=== PATIENT | female | born 1935 | race Caucasian/White ===

== ENCOUNTER 2018-09-16 09:43 | Emergency (ER) | payer MEDICARE ==
[~2018-09-16] VITALS: Ht 152.4 cm; Wt 40.4 kg
[~2018-09-16 09:43] MED LIST: ASCO10002 PO; ASPI-630 PO; CALC1TAB75 PO; CHOL200044 PO; CYCL10TA2 PO; DILT120C80 PO; DILT60TA3 PO; FLUT1DIS3 IH; GLUC1CAP41 PO; OMEG-123 PO; PROAIR HFA8.5 GM INH; SULF1TAB24 PO; TIOT18CA IH; TRAM-48 PO; VALS160T3 PO
--- NOTE | 2018-09-16 11:10 | PHYS DOC ---
Past Medical History Past Medical History: Constipation, COPD, Heart Disease, Hypertension Additional Past Medical Histor: back pain Past Surgical History: Cholecystectomy, Hysterectomy, Pacemaker Alcohol Use: None Drug Use: None Adult General Chief Complaint Chief Complaint: CONSTIPATION HPI HPI Patient is a 82 year old female who presents with hasn't had a bowel movement in 8 days. Patient was seen about 6 days ago in urgent care for some chronic back pain and they gave her hydrocodone. She been taking 2 every 6 hours. Patient is now having intense rectal pain. Review of Systems Review of Systems Constitutional: Denies fever or chills [] Eyes: Denies change in visual acuity, redness, or eye pain [] HENT: Denies nasal congestion or sore throat [] Respiratory: Denies cough or shortness of breath [] Cardiovascular: No additional information not addressed in HPI [] GI: Denies abdominal pain, nausea, vomiting, bloody stools or diarrhea. Rectal pain, constipation.[] : Denies dysuria or hematuria [] Musculoskeletal: Denies back pain or joint pain [] Integument: Denies rash or skin lesions [] Neurologic: Denies headache, focal weakness or sensory changes [] Endocrine: Denies polyuria or polydipsia [] All other systems were reviewed and found to be within normal limits, except as documented in this note. Current Medications Current Medications Current Medications Medications (Trade) Dose Ordered Sig/Reginald Start Time Stop Time Status Last Admin Dose Admin Fentanyl Citrate (Fentanyl 2ml Vial) 50 mcg 1X ONCE 09/16/18 13:00 09/16/18 13:01 DC Lidocaine HCl (Viscous Lidocaine) 15 ml 1X ONCE 09/16/18 13:00 09/16/18 13:01 DC Ondansetron HCl (Zofran Odt) 4 mg 1X ONCE 09/16/18 11:45 09/16/18 11:46 DC 09/16/18 11:43 4 MG Allergies Allergies Allergies Coded Allergies Type Severity Reaction Last Updated Verified prednisone Adverse Reaction Intermediate pt states she experienced hallucinations with Prednisone 08/11/16 Yes Physical Exam Physical Exam Constitutional: Well developed, well nourished, no acute distress, non-toxic appearance. [] HENT: Normocephalic, atraumatic, bilateral external ears normal, oropharynx moist, no oral exudates, nose normal. [] Eyes: PERRLA, EOMI, conjunctiva normal, no discharge. [] Neck: Normal range of motion, no tenderness, supple, no stridor. [] Cardiovascular:Heart rate regular rhythm, no murmur [] Lungs & Thorax: Bilateral breath sounds clear to auscultation [] Abdomen: Bowel sounds normal, soft, no tenderness, no masses, no pulsatile masses. Impacted stool at the rectum. [] Skin: Warm, dry, no erythema, no rash. [] Back: No tenderness, no CVA tenderness. [] Extremities: No tenderness, no cyanosis, no clubbing, ROM intact, no edema. [] Neurologic: Alert and oriented X 3, normal motor function, normal sensory function, no focal deficits noted. [] Psychologic: Affect normal, judgement normal, mood normal. [] Current Patient Data Vital Signs Vital Signs Date Time Temp Pulse Resp B/P (MAP) Pulse Ox O2 Delivery O2 Flow Rate FiO2 09/16/18 09:55 98.7 88 20 201/80 (120) Nasal Cannula 98.7 Lab Values Laboratory Tests Test 09/16/18 11:50 White Blood Count 11.7 x10^3/uL (4.0-11.0) H Red Blood Count 3.98 x10^6/uL (3.50-5.40) Hemoglobin 12.1 g/dL (12.0-15.5) Hematocrit 35.3 % (36.0-47.0) L Mean Corpuscular Volume 89 fL (79-100) Mean Corpuscular Hemoglobin 31 pg (25-35) Mean Corpuscular Hemoglobin Concent 34 g/dL (31-37) Red Cell Distribution Width 14.2 % (11.5-14.5) Platelet Count 351 x10^3/uL (140-400) Neutrophils (%) (Auto) 83 % (31-73) H Lymphocytes (%) (Auto) 11 % (24-48) L Monocytes (%) (Auto) 5 % (0-9) Eosinophils (%) (Auto) 0 % (0-3) Basophils (%) (Auto) 1 % (0-3) Neutrophils # (Auto) 9.6 x10^3uL (1.8-7.7) H Lymphocytes # (Auto) 1.3 x10^3/uL (1.0-4.8) Monocytes # (Auto) 0.6 x10^3/uL (0.0-1.1) Eosinophils # (Auto) 0.0 x10^3/uL (0.0-0.7) Basophils # (Auto) 0.1 x10^3/uL (0.0-0.2) Sodium Level 138 mmol/L (136-145) Potassium Level 3.9 mmol/L (3.5-5.1) Chloride Level 97 mmol/L (98-107) L Carbon Dioxide Level 29 mmol/L (21-32) Anion Gap 12 (6-14) Blood Urea Nitrogen 38 mg/dL (7-20) H Creatinine 1.2 mg/dL (0.6-1.0) H Estimated GFR (Cockcroft-Gault) 43.1 BUN/Creatinine Ratio 32 (6-20) H Glucose Level 119 mg/dL (70-99) H Calcium Level 10.0 mg/dL (8.5-10.1) Total Bilirubin 0.3 mg/dL (0.2-1.0) Aspartate Amino Transferase (AST) 23 U/L (15-37) Alanine Aminotransferase (ALT) 36 U/L (14-59) Alkaline Phosphatase 84 U/L (46-116) Total Protein 6.5 g/dL (6.4-8.2) Albumin 3.7 g/dL (3.4-5.0) Albumin/Globulin Ratio 1.3 (1.0-1.7) Laboratory Tests 09/16/18 11:50 Laboratory Tests 09/16/18 11:50 EKG EKG [] Radiology/Procedures Radiology/Procedures Abd CT Impressions: [facility] [address] [place] [address] IMAGING REPORT Signed PATIENT: RUTHIE CRUZ ACCOUNT: [id number] : 1935 LOCATION: ER AGE: 82 SEX: F EXAM STATUS: REG ER ORD. PHYSICIAN: JOSE CABRAL APRN REASON: CONSTIPATION/ FECAL IMPACTION PROCEDURE: CT ABDOMEN PELVIS WO CONTRAST Examination: CT of the abdomen pelvis without contrast HISTORY: History of fecal impaction, constipation TECHNIQUE: Axial CT images of the abdomen pelvis were performed without contrast. Coronal and sagittal reformats are performed Exposure: One or more of the following individualized dose reduction techniques were utilized for this examination: 1. Automated exposure control 2. Adjustment of the mA and/or kV according to patient size 3. Use of iterative reconstruction technique FINDINGS: The visualized bibasilar lungs are clear. No evidence of free air identified in the abdomen. The evaluation of the solid organs is limited due to lack of IV contrast. The evaluation of the bowel is limited lack of oral contrast. Calcified granulomas identified in the spleen, liver. There is a 1.4 cm hypodense nodule identified in the right adrenal gland measuring -10 Hounsfield units likely lipid rich adrenal adenoma. The stomach is mildly distended. Mildly atrophic changes of the pancreas. The small bowel is nondilated. Moderate amount of feces and gas noted throughout the colon. There is moderate inflammatory fat setting identified about the distal rectum. Urinary bladder is mildly distended. The appendix is not clearly identified. No evidence of intrarenal collecting system calculi or hydronephrosis. Mild compression changes of T12, L2 vertebral body. Moderate degenerative changes lumbar spine. Severe aortic atherosclerosis. Findings: 1. Moderate fat stranding identified about the distal rectum probably proctitis. 2. Feces and gas noted in the colon likely constipation. 3. 1.4 cm lipid rich right adrenal adenoma. Electronically signed by: Keith Contreras MD (09/16/2018 12:45 PM) [id number] DICTATED and SIGNED BY: KEITH CONTRERAS MD DATE: 09/16/18 1236 Course & Med Decision Making Course & Med Decision Making Patient is a 82 year old female who presents with hasn't had a bowel movement in 8 days. Patient was seen about 6 days ago in urgent care for some chronic back pain and they gave her hydrocodone. She been taking 2 every 6 hours. Patient is now having intense rectal pain. Abdomen is soft and nontender. Patient is afebrile. Patient denies nausea or vomiting. Patient denies having any diarrhea. Upon examination of the rectum stool can be seen at the rectum and is impacted. I tried to disimpact stool and got a small amount but patient was in a lot of pain. There is no rectal bleeding. The stool was very soft at the rectum. Flank pain patient is having is that her rectum of which she states that she tries to push but the stool come out and she is starting to have some spasms. She is alert and oriented. Skin is pink warm and dry. Patient denies any urinary symptoms. Vital signs are stable. Patient states that she has not taken any stool softeners and laxatives. Patient is given a soapsuds enema. CT abdomen shows 1. Moderate fat stranding identified about the distal rectum probably proctitis. 2. Feces and gas noted in the colon likely constipation. 3. 1.4 cm lipid rich right adrenal adenoma. After enema there was no results. The nurse states that she was able to get the rest of the stool out manually because the stool became even softer. The patient states she feels much better. The patient will be sent home with Lactulose and should follow up with her doctor. [] Dragon Disclaimer Dragon Disclaimer This electronic medical record was generated, in whole or in part, using a voice recognition dictation system. Departure Departure Impression: Primary Impression: Constipation Disposition: 01 HOME, SELF-CARE Condition: STABLE Referrals: ROCIO KERR DO (PCP) Patient Instructions: Constipation, Adult Additional Instructions: Follow up with your primary care. Take medications as prescribed. Scripts Lactulose (LACTULOSE) 20 Gm/30 Ml Solution 20 GM PO BID for 5 Days, [facility] [place] Prov: JOSE CABRAL APRN 09/16/18 Problem Qualifiers Primary Impression: Constipation Constipation type: unspecified constipation type Qualified Codes: K59.00 - Constipation, unspecified JOSE CABRAL APRN Sep 16, 2018 11:10
[2018-09-16] MEDS ORDERED: ONDANSETRON ODT 4 MG TAB.RAPDIS. ONE (11:30)
[2018-09-16] MEDS ORDERED: ONDANSETRON ODT 4 MG TAB.RAPDIS. PO ONE (11:45)
[2018-09-16] MEDS ORDERED: fentaNYL PF VIAL 100 MCG/2 ML VIAL IV ONE ×2 (11:45→13:00)
[2018-09-16 12:04] LABS: BASO # 0.1 x10^3/uL (0.0-0.2); BASO % 1 % (0-3); EOS % 0 % (0-3); HEMATOCRIT 35.3 % (36.0-47.0); HEMOGLOBIN 12.1 g/dL (12.0-15.5); LYMPH # 1.3 x10^3/uL (1.0-4.8); LYMPH % 11 % (24-48); MEAN CORPUSCULAR HEMOGLOBIN 31 pg (25-35); MEAN CORPUSCULAR HGB CONC 34 g/dL (31-37); MEAN CORPUSCULAR VOLUME 89 fL (79-100); MONO # 0.6 x10^3/uL (0.0-1.1); MONO % 5 % (0-9); NEUT # 9.6 x10^3uL (1.8-7.7); NEUT % 83 % (31-73); PLATELET COUNT 351 x10^3/uL (140-400); RED BLOOD COUNT 3.98 x10^6/uL (3.50-5.40); RED CELL DISTRIBUTION WIDTH 14.2 % (11.5-14.5); WHITE BLOOD COUNT 11.7 x10^3/uL (4.0-11.0)
[2018-09-16 12:16] LABS: CREATININE 1.2 mg/dL (0.6-1.0); GFR 43.1; POTASSIUM 3.9 mmol/L (3.5-5.1)
[2018-09-16 12:20] LABS: ALBUMIN 3.7 g/dL (3.4-5.0); ALBUMIN/GLOBULIN RATIO 1.3 (1.0-1.7); TOTAL BILIRUBIN 0.3 mg/dL (0.2-1.0); TOTAL PROTEIN 6.5 g/dL (6.4-8.2)
--- NOTE | 2018-09-16 12:49 | RAD ---
Examination: CT of the abdomen pelvis without contrast HISTORY: History of fecal impaction, constipation TECHNIQUE: Axial CT images of the abdomen pelvis were performed without contrast. Coronal and sagittal reformats are performed Exposure: One or more of the following individualized dose reduction techniques were utilized for this examination: 1. Automated exposure control 2. Adjustment of the mA and/or kV according to patient size 3. Use of iterative reconstruction technique FINDINGS: The visualized bibasilar lungs are clear. No evidence of free air identified in the abdomen. The evaluation of the solid organs is limited due to lack of IV contrast. The evaluation of the bowel is limited lack of oral contrast. Calcified granulomas identified in the spleen, liver. There is a 1.4 cm hypodense nodule identified in the right adrenal gland measuring -10 Hounsfield units likely lipid rich adrenal adenoma. The stomach is mildly distended. Mildly atrophic changes of the pancreas. The small bowel is nondilated. Moderate amount of feces and gas noted throughout the colon. There is moderate inflammatory fat setting identified about the distal rectum. Urinary bladder is mildly distended. The appendix is not clearly identified. No evidence of intrarenal collecting system calculi or hydronephrosis. Mild compression changes of T12, L2 vertebral body. Moderate degenerative changes lumbar spine. Severe aortic atherosclerosis. Findings: 1. Moderate fat stranding identified about the distal rectum probably proctitis. 2. Feces and gas noted in the colon likely constipation. 3. 1.4 cm lipid rich right adrenal adenoma. Electronically signed by: Keith Baron MD (09/16/2018 12:45 PM) [id number]
[2018-09-16] MEDS ORDERED: LIDOCAINE 2% VISCOUS 15 ML SOLUTION. MM ONE (13:00)
[2018-09-16] MEDS ORDERED: LACT20SO PO (13:14)
[2018-09-16 13:44] VITALS: BP 146/63
== END 2018-09-16 13:54 | disposition home or self-care (01) ==
LOC: ER 09:43
DX: K59.00 Constipation, unspecified (principal); J44.9 Chronic obstructive pulmonary disease, unspecified; I10 Essential (primary) hypertension; Z90.710 Acquired absence of both cervix and uterus; Z90.49 Acquired absence of other specified parts of digestive tract; Z95.0 Presence of cardiac pacemaker; Z88.8 Allergy status to other drugs, medicaments and biological substances
CPT/HCPCS: 36415; 74176; 80053; 85025; 99285; Q0162

== ENCOUNTER 2019-12-07 13:06 | Inpatient (IN) | payer MEDICARE ==
[~2019-12-07] VITALS: Ht 152.4 cm; Wt 47.9 kg
[~2019-12-07 13:06] MED LIST changes: +ALBU2.5V8 INH; +BUSP5TAB PO; -DILT120C80 PO; +DILT120C99 PO; +DRON2.5C PO; +HYDR-2761 PO; +LACT20SO PO; +LIDO700A21 TD; +PHEN-444 PO; -PROAIR HFA8.5 GM INH; +TEMA7.5C2 PO; +[UNRECOGNIZED DRUG - CODE] IV
[2019-12-07 14:25] LABS: BASO # 0.1 x10^3/uL (0.0-0.2); BASO % 1 % (0-3); EOS # 0.1 x10^3/uL (0.0-0.7); EOS % 1 % (0-3); HEMATOCRIT 27.9 % (36.0-47.0); HEMOGLOBIN 9.4 g/dL (12.0-15.5); LYMPH # 0.8 x10^3/uL (1.0-4.8); LYMPH % 12 % (24-48); MEAN CORPUSCULAR HEMOGLOBIN 28 pg (25-35); MEAN CORPUSCULAR HGB CONC 34 g/dL (31-37); MEAN CORPUSCULAR VOLUME 84 fL (79-100); MONO # 0.5 x10^3/uL (0.0-1.1); MONO % 8 % (0-9); NEUT # 5.1 x10^3/uL (1.8-7.7); NEUT % 78 % (31-73); PLATELET COUNT 228 x10^3/uL (140-400); RED BLOOD COUNT 3.33 x10^6/uL (3.50-5.40); RED CELL DISTRIBUTION WIDTH 14.4 % (11.5-14.5); WHITE BLOOD COUNT 6.5 x10^3/uL (4.0-11.0)
--- NOTE | 2019-12-07 14:32 | RAD ---
EXAM: Chest, single view. HISTORY: Shortness of breath. COMPARISON: 11/14/2019 FINDINGS: A frontal view of the chest is obtained. There has been no change in a moderate right pleural effusion with lower lobe infiltrate or atelectasis. There is stable diffuse increased interstitial opacity. There is a stable prominent cardiac silhouette. There is a cardiac pacemaker unchanged in position. There is no pneumothorax. IMPRESSION: 1. Stable moderate right pleural effusion with right lower lobe atelectasis or infiltrate. 2. Suspected emphysema with chronic diffuse increased interstitial opacity. Electronically signed by: Meredith Izaguirre MD (12/07/2019 2:29 PM) [place] [id number]
[2019-12-07 14:36] LABS: CALCIUM 9.2 mg/dL (8.5-10.1); CREATININE 0.7 mg/dL (0.6-1.0); GFR 79.9; POTASSIUM 3.4 mmol/L (3.5-5.1)
[2019-12-07 14:37] LABS: PROTHROMBIN TIME PATIENT 11.9 SEC (11.7-14.0)
[2019-12-07 14:43] LABS: ALBUMIN/GLOBULIN RATIO 1.2 (1.0-1.7); TOTAL BILIRUBIN 0.2 mg/dL (0.2-1.0); TOTAL PROTEIN 5.6 g/dL (6.4-8.2)
--- NOTE | 2019-12-07 14:55 | PHYS DOC ---
Past Medical History Past Medical History: Constipation, COPD, Heart Disease, Hypertension, Other Additional Past Medical Histor: back pain Past Surgical History: Cholecystectomy, Hysterectomy, Pacemaker Alcohol Use: None Drug Use: None Adult General Chief Complaint Chief Complaint: SHORTNESS OF BREATH HPI HPI Patient is a 84 year old male patient with history of hypertension COPD on 3 L of home oxygen, constipation, resident of [facility] who presents via EMS with complaint of abdominal pain and shortness of breath. Patient complaining of generalized abdominal pain since yesterday as a constant sharp pain without radiation and is stated she doesn't remember when was last time that she had a bowel movement but later on she states that she had a bowel movement yesterday. Patient denies nausea, vomiting, fever and chills history of the same problem. Patient had indwelling Hatfield catheter and denies no change in her urine output or color. Patient also complaining of increasing chronic shortness of breath since yesterday after her abdominal pain was started without cough or shortness of breath. alf reported that patient had increasing of right lower extremity edema and increasing shortness of breath. Patient had O2 sat of 100% on 3 L of home oxygen at arrival to ER. Review of Systems Review of Systems Constitutional: Denies fever or chills [] Eyes: Denies change in visual acuity, redness, or eye pain [] HENT: Denies nasal congestion or sore throat [] Respiratory: Denies cough, reports shortness of breath [] Cardiovascular: No additional information not addressed in HPI [] GI: Reports abdominal pain, denies nausea, vomiting, bloody stools or diarrhea [] : Denies dysuria or hematuria [] Musculoskeletal: Denies back pain or joint pain [] Integument: Denies rash or skin lesions [] Neurologic: Denies headache, focal weakness or sensory changes [] Endocrine: Denies polyuria or polydipsia [] All other systems were reviewed and found to be within normal limits, except as documented in this note. Current Medications Current Medications Current Medications Medications (Trade) Dose Ordered Sig/Reginald Start Time Stop Time Status Last Admin Dose Admin Ceftriaxone Sodium (Rocephin) 1 gm 1X ONCE 12/07/19 17:30 12/07/19 17:31 DC 12/07/19 19:13 1 GM Furosemide (Lasix) 20 mg 1X ONCE 12/07/19 17:45 12/07/19 17:46 DC 12/07/19 19:13 20 MG Info (CONTRAST GIVEN -- Rx MONITORING) 1 each PRN DAILY PRN 12/07/19 15:00 12/09/19 14:59 Iohexol (Omnipaque 240 Mg/ml) 30 ml 1X ONCE 12/07/19 15:00 12/07/19 15:01 DC 12/07/19 15:40 30 ML Iohexol (Omnipaque 300 Mg/ml) 75 ml 1X ONCE 12/07/19 15:00 12/07/19 15:01 DC 12/07/19 15:40 75 ML Allergies Allergies Allergies Coded Allergies Type Severity Reaction Last Updated Verified prednisone Adverse Reaction Intermediate pt states she experienced hallucinations with Prednisone 08/11/16 Yes Physical Exam Physical Exam Constitutional: Well developed, well nourished, mild distress, non-toxic appearance. [] HENT: Normocephalic, atraumatic. Eyes: PERRLA, EOMI, conjunctiva normal, no discharge. [] Neck: Normal range of motion, no tenderness, supple, no stridor. [] Cardiovascular:Heart rate regular rhythm, no murmur [] Lungs & Thorax: Bibasilar rales without respiratory distress. Abdomen: Mildly distended abdomen with gas, generalized guarding without tenderness, soft, soft, no tenderness, no masses, no pulsatile masses. [] Skin: Warm, dry, no erythema, no rash. [] Back: No tenderness, no CVA tenderness. [] Extremities: No tenderness, no cyanosis, no clubbing, ROM intact, right lower extremity trace edema without tenderness. [] Neurologic: Alert and oriented X 3, no focal deficits noted. [] Psychologic: Affect normal, judgement normal, mood normal. [] Current Patient Data Vital Signs Vital Signs Date Time Temp Pulse Resp B/P (MAP) Pulse Ox O2 Delivery O2 Flow Rate FiO2 12/07/19 18:00 104 29 177/85 (115) 97 Nasal Cannula 3.0 12/07/19 13:44 98.7 98.7 Lab Values Laboratory Tests Test 12/07/19 14:10 12/07/19 14:43 12/07/19 14:55 White Blood Count 6.5 x10^3/uL (4.0-11.0) Red Blood Count 3.33 x10^6/uL (3.50-5.40) L Hemoglobin 9.4 g/dL (12.0-15.5) L Hematocrit 27.9 % (36.0-47.0) L Mean Corpuscular Volume 84 fL (79-100) Mean Corpuscular Hemoglobin 28 pg (25-35) Mean Corpuscular Hemoglobin Concent 34 g/dL (31-37) Red Cell Distribution Width 14.4 % (11.5-14.5) Platelet Count 228 x10^3/uL (140-400) Neutrophils (%) (Auto) 78 % (31-73) H Lymphocytes (%) (Auto) 12 % (24-48) L Monocytes (%) (Auto) 8 % (0-9) Eosinophils (%) (Auto) 1 % (0-3) Basophils (%) (Auto) 1 % (0-3) Neutrophils # (Auto) 5.1 x10^3/uL (1.8-7.7) Lymphocytes # (Auto) 0.8 x10^3/uL (1.0-4.8) L Monocytes # (Auto) 0.5 x10^3/uL (0.0-1.1) Eosinophils # (Auto) 0.1 x10^3/uL (0.0-0.7) Basophils # (Auto) 0.1 x10^3/uL (0.0-0.2) Prothrombin Time 11.9 SEC (11.7-14.0) Prothrombin Time INR 0.9 (0.8-1.1) Sodium Level 135 mmol/L (136-145) L Potassium Level 3.4 mmol/L (3.5-5.1) L Chloride Level 99 mmol/L (98-107) Carbon Dioxide Level 34 mmol/L (21-32) H Anion Gap 2 (6-14) L Blood Urea Nitrogen 20 mg/dL (7-20) Creatinine 0.7 mg/dL (0.6-1.0) Estimated GFR (Cockcroft-Gault) 79.9 BUN/Creatinine Ratio 29 (6-20) H Glucose Level 124 mg/dL (70-99) H Lactic Acid Level 1.2 mmol/L (0.4-2.0) Calcium Level 9.2 mg/dL (8.5-10.1) Total Bilirubin 0.2 mg/dL (0.2-1.0) Aspartate Amino Transferase (AST) 21 U/L (15-37) Alanine Aminotransferase (ALT) 21 U/L (14-59) Alkaline Phosphatase 70 U/L (46-116) Creatine Kinase 29 U/L (26-192) GZ-Yia-G-Type Natriuretic Peptide 3665 pg/mL (0-449) H Total Protein 5.6 g/dL (6.4-8.2) L Albumin 3.0 g/dL (3.4-5.0) L Albumin/Globulin Ratio 1.2 (1.0-1.7) Lipase 142 U/L (73-393) Influenza Type A Antigen Negative (NEGATIVE) Influenza Type B Antigen Negative (NEGATIVE) Urine Collection Type Unknown Urine Color Yellow Urine Clarity Cloudy Urine pH 7.0 Urine Specific [place] 1.015 Urine Protein Negative mg/dL (NEG-TRACE) Urine Glucose (UA) Negative mg/dL (NEG) Urine Ketones (Stick) Negative mg/dL (NEG) Urine Blood Negative (NEG) Urine Nitrite Negative (NEG) Urine Bilirubin Negative (NEG) Urine Urobilinogen Dipstick 1.0 mg/dL (0.2 mg/dL) Urine Leukocyte Esterase Large (NEG) Urine RBC Occ /HPF (0-2) Urine WBC 20-40 /HPF (0-4) Urine Squamous Epithelial Cells Few /LPF Urine Amorphous Sediment Present /HPF Urine Bacteria Moderate /HPF (0-FEW) Urine Mucus Mod /LPF Laboratory Tests 12/07/19 14:10 Laboratory Tests 12/07/19 14:10 EKG EKG EKG interpreted by me. EKG at 1402 showed sinus tachycardia at rate of 101, PVCs, right axis deviation, left posterior fascicular block, LVH, no acute ST and T-wave elevation. Radiology/Procedures Radiology/Procedures [facility] [address] [place], [place] [id number] IMAGING REPORT Signed PATIENT: RUTHIE CRUZ ACCOUNT: [id number] : 1935 LOCATION: ER AGE: 84 SEX: F EXAM STATUS: REG ER ORD. PHYSICIAN: RUIZ CHAVEZ MD REASON: shortness of breath, abdominal pain PROCEDURE: PORTABLE CHEST 1V EXAM: Chest, single view. HISTORY: Shortness of breath. COMPARISON: 11/14/2019 FINDINGS: A frontal view of the chest is obtained. There has been no change in a moderate right pleural effusion with lower lobe infiltrate or atelectasis. There is stable diffuse increased interstitial opacity. There is a stable prominent cardiac silhouette. There is a cardiac pacemaker unchanged in position. There is no pneumothorax. IMPRESSION: 1. Stable moderate right pleural effusion with right lower lobe atelectasis or infiltrate. 2. Suspected emphysema with chronic diffuse increased interstitial opacity. Electronically signed by: Meredith Syed MD (12/07/2019 2:29 PM) [facility] DICTATED and SIGNED BY: MEREDITH SYED MD DATE: 12/07/19 1429 [facility] [address] [place] [address] IMAGING REPORT Signed PATIENT: RUTHIE CRUZ ACCOUNT: [id number] : 1935 LOCATION: ER AGE: 84 SEX: F EXAM STATUS: REG ER ORD. PHYSICIAN: RUIZ CHAVEZ MD REASON: shortness of breath, abdominal pain PROCEDURE: CT ABD PELV W/ORAL&IV CONTRAST Examination: CT ABD PELV W/ORAL IV CONTRAST History: Shortness of breath and abdominal pain Comparison/Correlation: 09/16/2018 CT abdomen and pelvis without contrast Findings: Axial images of the abdomen and pelvis were obtained following IV contrast. Sagittal and coronal reformatted images were provided. Moderate size right pleural effusion is present with adjacent atelectatic consolidation. Small left pleural effusion is present. Pacemaker and associated leads noted. Mild anasarca noted. Mitral annular calcification is evident. Small pericardial effusion noted. Calcified granulomas involving the liver and spleen. Small low-attenuation lesion involving the liver on axial image 14 of series 2 which may represent a cyst is present. Pancreas is unremarkable. Right kidney is unremarkable for a left renal lower pole scarring is evident. Large quantity of stool is noted throughout the colon. No extraluminal gas or bowel obstruction. No ascites or pelvic free fluid. Hatfield catheter is present within the urinary bladder which is decompressed. Marked calcific involvement throughout the aorta and iliac arteries noted. Femoral to femoral bypass graft is present. Fluid collection about the right common femoral vein which may represent a seroma or old hematoma is present measuring up to 2.7 cm diameter. Significant calcification involvement involving the proximal celiac and superior mesenteric arteries noted. Uterus is atrophic or absent. No enlarged abdominal or pelvic lymph nodes L2 compression fracture deformities present. Kyphoplasty T12 and L2 noted. Impression: Large quantity of stool throughout the colon. No acute inflammatory process within the abdomen or pelvis. Moderate-sized right pleural effusion and adjacent atelectasis. Small left pleural effusion. March also involvement of the abdominal aorta and its branches. PQRS Compliance Statement: One or more of the following individualized dose reduction techniques were utilized for this examination: 1. Automated exposure control 2. Adjustment of the mA and/or kV according to patient size 3. Use of iterative reconstruction technique Electronically signed by: Pacheco James MD (12/07/2019 4:14 PM) [facility] DICTATED and SIGNED BY: PACHECO JAMES MD DATE: 12/07/19 579 Course & Med Decision Making Course & Med Decision Making Pertinent Labs and Imaging studies reviewed. (See chart for details) Evaluation of patient in ER showed 84-year-old female patient brought in from [facility] because of abdominal pain and extremity edema. Patient had elevation of BNP without history of CHF taking diuretic. Of abdomen and pelvis showed constipation with history of chronic constipation. Patient also had indwelling Hatfield catheter with UTI. Patient did not have leukocytosis or elevation of lactic acid. Patient requiring admission for further evaluation and treatment. Discussed with Dr. Wiggins who is in agreement with admission. Discussed findings and plan with patient and family, who acknowledge understanding and agreement. Dragon Disclaimer Dragon Disclaimer This electronic medical record was generated, in whole or in part, using a voice recognition dictation system. Departure Departure Impression: Primary Impression: Constipation Additional Impressions: Abdominal pain Shortness of breath Anemia CHF (congestive heart failure) Hypoalbuminemia Hypokalemia Hyponatremia UTI (urinary tract infection) due to urinary indwelling Hatfield catheter Disposition: ADMITTED INPATIENT Admitting Physician: JUDAH Condition: IMPROVED Referrals: LUCIO PLUNKETT MD (PCP) Problem Qualifiers Primary Impression: Constipation Constipation type: unspecified constipation type Qualified Codes: K59.00 - Constipation, unspecified Additional Impressions: Abdominal pain Abdominal location: unspecified location Qualified Codes: R10.9 - Unspecified abdominal pain Anemia Anemia type: unspecified type Qualified Codes: D64.9 - Anemia, unspecified CHF (congestive heart failure) Heart failure type: unspecified Heart failure chronicity: unspecified Qualified Codes: I50.9 - Heart failure, unspecified UTI (urinary tract infection) due to urinary indwelling Hatfield catheter Indwelling urinary catheter type: indwelling urethral catheter Encounter type: initial encounter Qualified Codes: T83.511A - Infection and inflammatory reaction due to indwelling urethral catheter, initial encounter; N39.0 - Urinary tract infection, site not specified RUIZ CHAVEZ MD Dec 07, 2019 14:55
[2019-12-07] MEDS ORDERED: IOHEXOL 300 MG/ML 100ML VIAL. IV ONE (15:00)
[2019-12-07] MEDS ORDERED: CONTRAST GIVEN. MC PRN (15:00)
[2019-12-07] MEDS ORDERED: IOHEXOL 240 MG/ML 50ML VIAL. PO ONE (15:00)
[2019-12-07 15:01] LABS: BILIRUBIN,URINE NEGATIVE (NEG); CLARITY,URINE CLOUDY; COLOR,URINE YELLOW; NITRITE,URINE NEGATIVE (NEG); PROTEIN,URINE NEGATIVE (NEG-TRACE)
[2019-12-07 15:12] LABS: BACTERIA,URINE MODERATE /HPF (0-FEW); RBC,URINE OCC /HPF (0-2); SQUAMOUS EPITHELIAL CELL,UR FEW /LPF
[2019-12-07 15:13] LABS: AMORPHOUS SEDIMENT,UR PRESENT /HPF; WBC,URINE 20-40 /HPF (0-4)
[2019-12-07 15:33] LABS: INFLUENZA A PATIENT NEGATIVE (NEGATIVE); INFLUENZA B PATIENT NEGATIVE (NEGATIVE)
--- NOTE | 2019-12-07 16:17 | RAD ---
Examination: CT ABD PELV W/ORAL IV CONTRAST History: Shortness of breath and abdominal pain Comparison/Correlation: 09/16/2018 CT abdomen and pelvis without contrast Findings: Axial images of the abdomen and pelvis were obtained following IV contrast. Sagittal and coronal reformatted images were provided. Moderate size right pleural effusion is present with adjacent atelectatic consolidation. Small left pleural effusion is present. Pacemaker and associated leads noted. Mild anasarca noted. Mitral annular calcification is evident. Small pericardial effusion noted. Calcified granulomas involving the liver and spleen. Small low-attenuation lesion involving the liver on axial image 14 of series 2 which may represent a cyst is present. Pancreas is unremarkable. Right kidney is unremarkable for a left renal lower pole scarring is evident. Large quantity of stool is noted throughout the colon. No extraluminal gas or bowel obstruction. No ascites or pelvic free fluid. Hatfield catheter is present within the urinary bladder which is decompressed. Marked calcific involvement throughout the aorta and iliac arteries noted. Femoral to femoral bypass graft is present. Fluid collection about the right common femoral vein which may represent a seroma or old hematoma is present measuring up to 2.7 cm diameter. Significant calcification involvement involving the proximal celiac and superior mesenteric arteries noted. Uterus is atrophic or absent. No enlarged abdominal or pelvic lymph nodes L2 compression fracture deformities present. Kyphoplasty T12 and L2 noted. Impression: Large quantity of stool throughout the colon. No acute inflammatory process within the abdomen or pelvis. Moderate-sized right pleural effusion and adjacent atelectasis. Small left pleural effusion. March also involvement of the abdominal aorta and its branches. PQRS Compliance Statement: One or more of the following individualized dose reduction techniques were utilized for this examination: 1. Automated exposure control 2. Adjustment of the mA and/or kV according to patient size 3. Use of iterative reconstruction technique Electronically signed by: Pacheco Sears MD (12/07/2019 4:14 PM) [facility]
--- NOTE | 2019-12-07 17:25 | PDOC1 ---
History and Physical Date of Admission Date of Admission DATE: 12/07/19 TIME: 17:22 Identification/Chief Complaint Chief Complaint Abdominal pain RLE swelling Source Source: Caregiver, Chart review, Patient History of Present Illness History of Present Illness Ms Soria is an 84yo F w/ PMHx COPD, [id number] smoking, stopped smoking 20 years ago, chronic hypoxic respiratory faiure on oxygen 3 liters per minute via nasal cannula, HTN, CAD, s/p PPM, HTN, h/o T12 and L2 compression fractures who has been noted with worsening abdominal pain and lower extremity edema at [facility]. She has had increased shortness of breath. She has had chest tightness. She denies cough or sputum production. Notable for right pleural effusion on CXR and large stool burden on CT abdomen. BNP 3665, K 3.4, Hb 9.4. 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 Past Medical History Cardiovascular: Other Pulmonary: COPD GI: No pertinent hx Heme/Onc: No pertinent hx Hepatobiliary: No pertinent hx Psych: No pertinent hx Musculoskeletal: low back pain Family History Family History: No Significant, Hypertension Social History Smoke: Quit ALCOHOL: none Drugs: None Current Problem List Problem List Problems Medical Problems: (1) Abdominal pain Status: Acute (2) Anemia Status: Acute (3) CHF (congestive heart failure) Status: Acute (4) Constipation Status: Acute (5) Hypoalbuminemia Status: Acute (6) Hypokalemia Status: Acute (7) Hyponatremia Status: Acute (8) Shortness of breath Status: Acute Current Medications Current Medications Current Medications Iohexol (Omnipaque 240 Mg/ml) 30 ml 1X ONCE PO ; Start 12/07/19 at 15:00; Stop 12/07/19 at 15:01; Status DC Iohexol (Omnipaque 300 Mg/ml) 75 ml 1X ONCE IV ; Start 12/07/19 at 15:00; Stop 12/07/19 at 15:01; Status DC Info (CONTRAST GIVEN -- Rx MONITORING) 1 each PRN DAILY PRN MC SEE COMMENTS; Start 12/07/19 at 15:00; Stop 12/09/19 at 14:59 Ceftriaxone Sodium (Rocephin) 1 gm 1X ONCE IVP ; Start 12/07/19 at 17:30; Stop 12/07/19 at 17:31 Active Scripts Active Marinol (Dronabinol) 2.5 Mg Capsule 2.5 Mg PO BID 30 Days Procalamine Iv Solution (Aa 3%/Electrolyte-Tpn Soln/Gly) 1,000 Ml Iv.soln 1,000 Ml IV DAILY 3 Days Phenazopyridine Hcl 200 Mg Tablet 200 Mg PO PRN TID PRN 10 Days Lidocaine PATCH (Lidocaine) 1 Each Adh..patch 1 Patch TD DAILY Buspirone Hcl 5 Mg Tablet 5 Mg PO BID Restoril (Temazepam) 7.5 Mg Capsule 7.5 Mg PO PRN QHS PRN Hydrocodone-Apap 5-325 (Hydrocodone Bit/Acetaminophen) 1 Tab Tablet 1 Tab PO PRN Q4HRS PRN Ultram (Tramadol Hcl) 50 Mg Tablet 25 Mg PO Q6H PRN Lactulose 20 Gm/30 Ml Solution 20 Gm PO BID 5 Days Diltiazem 24HR Cd (Diltiazem Hcl) 120 Mg Cap.er.24h 120 Mg PO DAILY SIG: ONE TAB DAILY Reported Cyclobenzaprine Hcl 10 Mg Tablet 10 Mg PO BID Proair Hfa Inhaler (Albuterol Sulfate) 8.5 Gm Hfa.aer.ad 1 Puff INH PRN Q6HRS PRN Spiriva (Tiotropium [place]) 18 Mcg Cap.w.dev 2 Inh IH DAILY Advair 250-50 Diskus (Fluticasone/Salmeterol) 1 Each Disk.w.dev 1 Inh IH BID Vitamin C (Ascorbic Acid) 1,000 Mg Tablet 1,000 Mg PO DAILY Fish Oil [place]-3 EC 1,200 mg ([place]-3/Dha/Epa/Fish Oil) 1 Each Capsule.dr 1 Each PO BID Calcium 600 + Vit D 200 Tablet (Calcium Carbonate/Vitamin D3) 1 Each Tablet 1 Each PO BID Aspirin 81 Mg Tab.chew 81 Mg PO DAILY D3-2000 (Cholecalciferol (Vitamin D3)) 2,000 Unit Capsule 2,000 Unit PO DAILY Diovan (Valsartan) 160 Mg Tablet 160 Mg PO BID Allergies Allergies: Coded Allergies: prednisone (Verified Adverse Reaction, Intermediate, pt states she experienced hallucinations with Prednisone, 08/11/16) pt states she experienced hallucinations with Prednisone ROS General: YES: Fatigue, Malaise; No: Chills, Night Sweats, Appetite, Other PSYCHOLOGICAL ROS: No: Anxiety, Behavioral Disorder, Concentration difficultie, Decreased libido, Depression, Disorientation, Hallucinations, Hostility, Irritablity, Memory difficulties, Mood Swings, Obsessive thoughts, Physical abuse, Sexual abuse, Sleep disturbances, Suicidal ideation, Other Eyes: No Blurry vision, No Decreased vision, No Double vision, No Dry eyes, No Excessive tearing, No Eye Pain, No Itchy Eyes, No Loss of vision, No Photophobia, No Scotomata, No Uses contacts, No Uses glasses, No Other HEENT: No: Heacaches, Visual Changes, Hearing change, Nasal congestion, Nasal discharge, Oral lesions, Sinus pain, Sore Throat, Epistaxis, Sneezing, Snoring, Tinnitus, Vertigo, Vocal changes, Other ALLERGY AND IMMUNOLOGY: No: Hives, Insect Bite Sensitivity, Itchy/Watery Eyes, Nasal Congestion, Post Nasal Drip, Seasonal Allergies, Other Hematological and Lymphatic: No: Bleeding Problems, Blood Clots, Blood Transfusions, Brusing, Night Sweats, Pallor, Swollen Lymph Nodes, Other ENDOCRINE: No: Breast Changes, Galactorrhea, Hair Pattern Changes, Hot Flashes, Malaise/lethargy, Mood Swings, Palpitations, Polydipsia/polyuria, Skin Changes, Temperature Intolerance, Unexpected Weight Changes, Other Breast: No New/Changing Breast Lumps, No Nipple changes, No Nipple discharge, No Other Respiratory: YES: Shortness of breath; No: Cough, Hemoptysis, Orthopnea, Pleuritic Pain, SOB with excertion, Sputum Changes, Stridor, Tachypnea, Wheezing, Other Cardiovascular: yes Edema; No Chest Pain, No Palpitations, No Orthopnea, No Paroxysmal Noc. Dyspnea, No Lt Headedness, No Other Gastrointestinal: Yes Abdominal Pain, Yes Constipation; No Nausea, No Vomiting, No Diarrhea, No Melena, No Hematochezia, No Other Genitourinary: No Dysuria, No Frequency, No Incontinence, No Hematuria, No Retention, No Discharge, No Urgency, No Pain, No Flank Pain, No Other, No , No , No , No , No , No , No Musculoskeletal: No Gait Disturbance, No Joint Pain, No Joint Stiffness, No Joint Swelling, No Muscle Pain, No Muscular Weakness, No Pain In:, No Swelling In:, No Other Neurological: No Behavorial Changes, No Bowel/Bladder ControlChng, No Confusion, No Dizziness, No Gait Disturbance, No Headaches, No Impaired Coord/balance, No Memory Loss, No Numbness/Tingling, No Seizures, No Speech Problems, No Tremors, No Visual Changes, No Weakness, No Other Skin: No Dry Skin, No Eczema, No Hair Changes, No Lumps, No Mole Changes, No Mottling, No Nail Changes, No Pruritus, No Rash, No Skin Lesion Changes, No Other, No Acne Physical Exam General: Alert, Cooperative, No acute distress HEENT: Atraumatic, PERRLA, EOMI, Mucous membr. moist/pink Lungs: Other (Decreased bibasilar breath sounds) Heart: S1S2, RRR, no thrills, no rubs, no gallops, no murmurs Abdomen: Normal bowel sounds, Soft, No hepatosplenomegaly, No masses, Other (Diffuse mild tenderness) Rectal Exam: not examined Extremities: No clubbing, No cyanosis, No edema, Normal pulses, No tenderness/swelling Skin: No rashes, No breakdown, No significant lesion Neuro: Normal gait, Normal speech, Strength at 5/5 X4 ext, Normal tone, Sensation intact, Cranial nerves 3-12 NL, Reflexes 2+ Psych/Mental Status: Mental status NL, Mood NL Vitals Vitals Vital Signs Date Time Temp Pulse Resp B/P (MAP) Pulse Ox O2 Delivery O2 Flow Rate FiO2 12/07/19 15:00 92 29 194/84 (120) 92 Nasal Cannula 3.0 12/07/19 13:44 98.7 98.7 Labs Labs Laboratory Tests Test 12/07/19 14:10 12/07/19 14:43 12/07/19 14:55 White Blood Count 6.5 x10^3/uL (4.0-11.0) Red Blood Count 3.33 x10^6/uL (3.50-5.40) Hemoglobin 9.4 g/dL (12.0-15.5) Hematocrit 27.9 % (36.0-47.0) Mean Corpuscular Volume 84 fL (79-100) Mean Corpuscular Hemoglobin 28 pg (25-35) Mean Corpuscular Hemoglobin Concent 34 g/dL (31-37) Red Cell Distribution Width 14.4 % (11.5-14.5) Platelet Count 228 x10^3/uL (140-400) Neutrophils (%) (Auto) 78 % (31-73) Lymphocytes (%) (Auto) 12 % (24-48) Monocytes (%) (Auto) 8 % (0-9) Eosinophils (%) (Auto) 1 % (0-3) Basophils (%) (Auto) 1 % (0-3) Neutrophils # (Auto) 5.1 x10^3/uL (1.8-7.7) Lymphocytes # (Auto) 0.8 x10^3/uL (1.0-4.8) Monocytes # (Auto) 0.5 x10^3/uL (0.0-1.1) Eosinophils # (Auto) 0.1 x10^3/uL (0.0-0.7) Basophils # (Auto) 0.1 x10^3/uL (0.0-0.2) Prothrombin Time 11.9 SEC (11.7-14.0) Prothromb Time International Ratio 0.9 (0.8-1.1) Sodium Level 135 mmol/L (136-145) Potassium Level 3.4 mmol/L (3.5-5.1) Chloride Level 99 mmol/L (98-107) Carbon Dioxide Level 34 mmol/L (21-32) Anion Gap 2 (6-14) Blood Urea Nitrogen 20 mg/dL (7-20) Creatinine 0.7 mg/dL (0.6-1.0) Estimated GFR (Cockcroft-Gault) 79.9 BUN/Creatinine Ratio 29 (6-20) Glucose Level 124 mg/dL (70-99) Lactic Acid Level 1.2 mmol/L (0.4-2.0) Calcium Level 9.2 mg/dL (8.5-10.1) Total Bilirubin 0.2 mg/dL (0.2-1.0) Aspartate Amino Transf (AST/SGOT) 21 U/L (15-37) Alanine Aminotransferase (ALT/SGPT) 21 U/L (14-59) Alkaline Phosphatase 70 U/L (46-116) Creatine Kinase 29 U/L (26-192) CO-Peo-Z-Type Natriuretic Peptide 3665 pg/mL (0-449) Total Protein 5.6 g/dL (6.4-8.2) Albumin 3.0 g/dL (3.4-5.0) Albumin/Globulin Ratio 1.2 (1.0-1.7) Lipase 142 U/L (73-393) Influenza Type A Antigen Negative (NEGATIVE) Influenza Type B Antigen Negative (NEGATIVE) Urine Collection Type Unknown Urine Color Yellow Urine Clarity Cloudy Urine pH 7.0 Urine Specific [place] 1.015 Urine Protein Negative mg/dL (NEG-TRACE) Urine Glucose (UA) Negative mg/dL (NEG) Urine Ketones (Stick) Negative mg/dL (NEG) Urine Blood Negative (NEG) Urine Nitrite Negative (NEG) Urine Bilirubin Negative (NEG) Urine Urobilinogen Dipstick 1.0 mg/dL (0.2 mg/dL) Urine Leukocyte Esterase Large (NEG) Urine RBC Occ /HPF (0-2) Urine WBC 20-40 /HPF (0-4) Urine Squamous Epithelial Cells Few /LPF Urine Amorphous Sediment Present /HPF Urine Bacteria Moderate /HPF (0-FEW) Urine Mucus Mod /LPF Laboratory Tests Test 12/07/19 14:10 12/07/19 14:43 12/07/19 14:55 White Blood Count 6.5 x10^3/uL (4.0-11.0) Red Blood Count 3.33 x10^6/uL (3.50-5.40) Hemoglobin 9.4 g/dL (12.0-15.5) Hematocrit 27.9 % (36.0-47.0) Mean Corpuscular Volume 84 fL (79-100) Mean Corpuscular Hemoglobin 28 pg (25-35) Mean Corpuscular Hemoglobin Concent 34 g/dL (31-37) Red Cell Distribution Width 14.4 % (11.5-14.5) Platelet Count 228 x10^3/uL (140-400) Neutrophils (%) (Auto) 78 % (31-73) Lymphocytes (%) (Auto) 12 % (24-48) Monocytes (%) (Auto) 8 % (0-9) Eosinophils (%) (Auto) 1 % (0-3) Basophils (%) (Auto) 1 % (0-3) Neutrophils # (Auto) 5.1 x10^3/uL (1.8-7.7) Lymphocytes # (Auto) 0.8 x10^3/uL (1.0-4.8) Monocytes # (Auto) 0.5 x10^3/uL (0.0-1.1) Eosinophils # (Auto) 0.1 x10^3/uL (0.0-0.7) Basophils # (Auto) 0.1 x10^3/uL (0.0-0.2) Prothrombin Time 11.9 SEC (11.7-14.0) Prothromb Time International Ratio 0.9 (0.8-1.1) Sodium Level 135 mmol/L (136-145) Potassium Level 3.4 mmol/L (3.5-5.1) Chloride Level 99 mmol/L (98-107) Carbon Dioxide Level 34 mmol/L (21-32) Anion Gap 2 (6-14) Blood Urea Nitrogen 20 mg/dL (7-20) Creatinine 0.7 mg/dL (0.6-1.0) Estimated GFR (Cockcroft-Gault) 79.9 BUN/Creatinine Ratio 29 (6-20) Glucose Level 124 mg/dL (70-99) Lactic Acid Level 1.2 mmol/L (0.4-2.0) Calcium Level 9.2 mg/dL (8.5-10.1) Total Bilirubin 0.2 mg/dL (0.2-1.0) Aspartate Amino Transf (AST/SGOT) 21 U/L (15-37) Alanine Aminotransferase (ALT/SGPT) 21 U/L (14-59) Alkaline Phosphatase 70 U/L (46-116) Creatine Kinase 29 U/L (26-192) JF-Tgc-D-Type Natriuretic Peptide 3665 pg/mL (0-449) Total Protein 5.6 g/dL (6.4-8.2) Albumin 3.0 g/dL (3.4-5.0) Albumin/Globulin Ratio 1.2 (1.0-1.7) Lipase 142 U/L (73-393) Influenza Type A Antigen Negative (NEGATIVE) Influenza Type B Antigen Negative (NEGATIVE) Urine Collection Type Unknown Urine Color Yellow Urine Clarity Cloudy Urine pH 7.0 Urine Specific [place] 1.015 Urine Protein Negative mg/dL (NEG-TRACE) Urine Glucose (UA) Negative mg/dL (NEG) Urine Ketones (Stick) Negative mg/dL (NEG) Urine Blood Negative (NEG) Urine Nitrite Negative (NEG) Urine Bilirubin Negative (NEG) Urine Urobilinogen Dipstick 1.0 mg/dL (0.2 mg/dL) Urine Leukocyte Esterase Large (NEG) Urine RBC Occ /HPF (0-2) Urine WBC 20-40 /HPF (0-4) Urine Squamous Epithelial Cells Few /LPF Urine Amorphous Sediment Present /HPF Urine Bacteria Moderate /HPF (0-FEW) Urine Mucus Mod /LPF Images Images CXR - 1. Stable moderate right pleural effusion with right lower lobe atel ectasis or infiltrate. 2. Suspected emphysema with chronic diffuse increased interstitial opacity. CT abdomen/pelvis - Moderate size right pleural effusion is present with adjacent atelectatic consolidation. Small left pleural effusion is present. Pacemaker and associated leads noted. Mild anasarca noted. Mitral annular calcification is evident. Small pericardial effusion noted. Calcified granulomas involving the liver and spleen. Small low-attenuation lesion involving the liver on axial image 14 of series 2 which may represent a cyst is present. Pancreas is unremarkable. Right kidney is unremarkable for a left renal lower pole scarring is evident. Large quantity of stool is noted throughout the colon. No extraluminal gas or bowel obstruction. No ascites or pelvic free fluid. [place]field catheter is present within the urinary bladder which is decompressed. Marked calcific involvement throughout the aorta and iliac arteries noted. Femoral to femoral bypass graft is present. Fluid collection about the right common femoral vein which may represent a seroma or old hematoma is present measuring up to 2.7 cm diameter. Significant calcification involvement involving the proximal celiac and superior mesenteric arteries noted. Uterus is atrophic or absent. No enlarged abdominal or pelvic lymph nodes L2 compression fracture deformities present. Kyphoplasty T12 and L2 noted. Impression: Large quantity of stool throughout the colon. No acute inflammatory process within the abdomen or pelvis. Moderate-sized right pleural effusion and adjacent atelectasis. Small left pleural effusion. VTE Prophylaxis Ordered VTE Prophylaxis Devices: Yes VTE Pharmacological Prophylaxi: Yes Assessment/Plan Assessment/Plan A/P: Intractable abdominal pain - with severe Constipation, will start bowel regimen Shortness of breath - with pleural effusions, treated for acute CHF. Will consult cardiology, she wants care coordinated through her [facility] child day care center worker Anemia - chronic, stable, will monitor CHF (congestive heart failure) - acute diastolic, will treat as such Severe protein calorie malnutrition - Hypoalbuminemia Hypokalemia - replace Hyponatremia - replace, nutrition to see Chronic respiratory failure - will wean O2 as tolerated Compression deformity in L2, compression deformity in T12, status post kyphoplasty. Chronic obstructive pulmonary disease - will consult pulmonology for further recs Status post pacemaker placement - stable Hypertension - cont meds UTI - rocephin, f/u culture FEN - Cardiac diet PPX - lovenox FULL CODE Dispo - inpatient likely 2 midnights KANDI GERONIMO MD Dec 07, 2019 17:25
[2019-12-07] MEDS ORDERED: cefTRIAXone IV Push 1 GM VIAL. IVP ONE (17:30)
[2019-12-07] MEDS ORDERED: FUROSEMIDE 20 MG/2 ML VIAL. IVP ONE (17:45)
[2019-12-07] MEDS ORDERED: ALBUTEROL SULFATE 2.5 MG/3 ML NEBU. INH PRN (21:45)
[2019-12-07] MEDS ORDERED: BISACODYL 10 MG SUPP.RECT. PR PRN (21:45)
[2019-12-07] MEDS: POLYETHYLENE GLYCOL 3350 17 GM PACKET. PO SCH (22:00)
[2019-12-07] MEDS: PSYLLIUM HUSK (SUGAR FREE) 1 PKT PACKET PO SCH (22:00)
[2019-12-07] MEDS ORDERED: BISACODYL 10 MG SUPP.RECT. PR ONE (22:00)
[2019-12-07] MEDS: busPIRone 5 MG TABLET. PO SCH (22:00)
[2019-12-07 23:00] VITALS: BP_SYST 153; BP_SYST 171; BP_DIAS 67; BP_DIAS 81
[2019-12-07] MEDS: HYDROcodone/APAP 5/325MG 1 TAB TABLET PO PRN (23:41)
[2019-12-07] MEDS: traMADol 50 MG TABLET PO PRN (23:42)
[2019-12-08 03:00] VITALS: BP 154/73
[2019-12-08] MEDS ORDERED: C.DIFF MED SCREEN BY RX. MC ONE (03:30)
--- NOTE | 2019-12-08 05:15 | EKG ---
[facility] [address] [place] [address] Test Date: 2019-12-07 Test Time: 14:02:06 Pat Name: RUTHIE CRUZ Department: Room: Gender: F Clinical Research Physician: : [id number] Requested By: RUIZ CHAVEZ Order Number: [id number] Reading MD: Measurements Intervals [place] Rate: 101 P: -134 HI: 72 QRS: 154 QRSD: 92 T: 88 QT: 390 QTc: 513 Interpretive Statements SINUS TACHYCARDIA VENTRICULAR PREMATURE COMPLEX(ES) ABNORMAL RIGHT AXIS DEVIATION LEFT POSTERIOR FASCICULAR BLOCK LVH WITH REPOLARIZATION ABNORMALITY QRS(T) CONTOUR ABNORMALITY CONSIDER INFERIOR MYOCARDIAL DAMAGE ABNORMAL ECG RI6.01 No previous ECG available for comparison
[2019-12-08 07:30] VITALS: BP 168/82
[2019-12-08] MEDS: IPRATRPIUM/ALBUTEROL 0.5/2.5MG 3 ML NEBU. NEB SCH ×3 (08:00→16:00)
[2019-12-08] MEDS: BUDESONIDE 0.5 MG/2 ML NEBU. NEB SCH (08:00)
[2019-12-08] MEDS: LACTULOSE 20 GM/30 ML SOLUTION. PO SCH ×2 (09:00→20:39)
[2019-12-08] MEDS: busPIRone 5 MG TABLET. PO SCH ×2 (09:00→20:40)
[2019-12-08] MEDS: DRONABINOL 2.5 MG CAPSULE. PO SCH ×2 (09:00→20:39)
[2019-12-08] MEDS: ASPIRIN CHEWABLE 81 MG TABLET. PO SCH (09:52)
[2019-12-08] MEDS: LOSARTAN POTASSIUM 50 MG TABLET. PO SCH (09:52)
[2019-12-08] MEDS: cefTRIAXone IV Push 1 GM VIAL. IVP SCH (09:54)
--- NOTE | 2019-12-08 10:00 | PDOC2 ---
MARTI DURAND CARROTING MACHINE OPERATOR 12/08/19 1000: CARDIAC CONSULT DATE OF CONSULT Date of Consult DATE: 12/08/19 TIME: 09:53 REASON FOR CONSULT Reason for Consult: CHF Pleural effusion REFERRING PHYSICIAN Referring Physician: Dr. Wiggins SOURCE Source: Chart review, Patient HISTORY OF PRESENT ILLNESS HISTORY OF PRESENT ILLNESS This is an 84 yo female who presented from [facility] secondary to abdominal pain and shortness of breath. Is somewhat confused. C/o diffuse abdominal tenderness. No presented c/o shortness of breath. Is requesting to be transferred to where her residential leasing manager, Dr. Phillips is. Does report that she has had some LE edema. Noted reports of chest tightness, but patient denies and chest pain, pressure, or tightness. No dizziness, diaphoresis, or nausea/vomiting. No cough or sputum production. PAST MEDICAL HISTORY Cardiovascular: CAD, CHF, HTN, Other (PAD) Pulmonary: COPD GI: GERD Endocrine: Osteoporosis PAST SURGICAL HISTORY Past Surgical History: Pacemaker (AICD ), Hernia Repair, Hysterectomy FAMILY HISTORY Family History: Hypertension SOCIAL HISTORY Smoke: Quit ALCOHOL: none Drugs: None Lives: [facility] (has been at for rehab) CURRENT MEDICATIONS CURRENT MEDICATIONS Current Medications Medications (Trade) Dose Ordered Sig/Reginald Route PRN Reason Start Time Stop Time Status Last Admin Dose Admin Iohexol (Omnipaque 240 Mg/ml) 30 ml 1X ONCE PO 12/07/19 15:00 12/07/19 15:01 DC 12/07/19 15:40 Iohexol (Omnipaque 300 Mg/ml) 75 ml 1X ONCE IV 12/07/19 15:00 12/07/19 15:01 DC 12/07/19 15:40 Ceftriaxone Sodium (Rocephin) 1 gm 1X ONCE IVP 12/07/19 17:30 12/07/19 17:31 DC 12/07/19 19:13 Furosemide (Lasix) 20 mg 1X ONCE IVP 12/07/19 17:45 12/07/19 17:46 DC 12/07/19 19:13 Acetaminophen/ Hydrocodone Bitart (Lortab 5/325) 1 tab PRN Q4HRS PRN PO MODERATE PAIN 4-6 12/07/19 21:45 12/07/19 23:41 Tramadol HCl (Ultram) 25 mg PRN Q6HRS PRN PO MODERATE PAIN 4-6 12/07/19 21:45 12/07/19 23:42 ALLERGIES ALLERGIES: Coded Allergies: prednisone (Verified Adverse Reaction, Intermediate, pt states she experienced hallucinations with Prednisone, 08/11/16) pt states she experienced hallucinations with Prednisone ROS Review of System 14 point ROS conducted with pertinent positives noted above in HPI PHYSICAL EXAM General: Alert (oriented to person and place), No acute distress HEENT: Other Lungs: Other (diminished ) Heart: Regular rate, Normal S1, Normal S2 Abdomen: Soft, Other (diffuse tenderness ) Extremities: Other (trace LLE and 1+ RLE edema ) Skin: No significant lesion, Other Neuro: Normal speech, Sensation intact Psych/Mental Status: Mood NL MUSCULOSKELETAL: Osteoarthritic changes both hands VITALS/I&O VITALS/I&O: Vital Signs Date Time Temp Pulse Resp B/P (MAP) Pulse Ox O2 Delivery O2 Flow Rate FiO2 12/08/19 08:11 98 Nasal Cannula 3.0 12/08/19 07:30 98.4 102 16 168/82 (110) 98.4 I & O 12/07/19 12/07/19 12/08/19 15:00 23:00 07:00 Intake Total 400 ml 240 ml Output Total 1 ml 2351 ml Balance 399 ml -2111 ml LABS Lab: Laboratory Tests Test 12/07/19 14:10 12/07/19 14:43 12/07/19 14:55 White Blood Count 6.5 x10^3/uL (4.0-11.0) Red Blood Count 3.33 x10^6/uL (3.50-5.40) L Hemoglobin 9.4 g/dL (12.0-15.5) L Hematocrit 27.9 % (36.0-47.0) L Mean Corpuscular Volume 84 fL (79-100) Mean Corpuscular Hemoglobin 28 pg (25-35) Mean Corpuscular Hemoglobin Concent 34 g/dL (31-37) Red Cell Distribution Width 14.4 % (11.5-14.5) Platelet Count 228 x10^3/uL (140-400) Neutrophils (%) (Auto) 78 % (31-73) H Lymphocytes (%) (Auto) 12 % (24-48) L Monocytes (%) (Auto) 8 % (0-9) Eosinophils (%) (Auto) 1 % (0-3) Basophils (%) (Auto) 1 % (0-3) Neutrophils # (Auto) 5.1 x10^3/uL (1.8-7.7) Lymphocytes # (Auto) 0.8 x10^3/uL (1.0-4.8) L Monocytes # (Auto) 0.5 x10^3/uL (0.0-1.1) Eosinophils # (Auto) 0.1 x10^3/uL (0.0-0.7) Basophils # (Auto) 0.1 x10^3/uL (0.0-0.2) Prothrombin Time 11.9 SEC (11.7-14.0) Prothrombin Time INR 0.9 (0.8-1.1) Sodium Level 135 mmol/L (136-145) L Potassium Level 3.4 mmol/L (3.5-5.1) L Chloride Level 99 mmol/L (98-107) Carbon Dioxide Level 34 mmol/L (21-32) H Anion Gap 2 (6-14) L Blood Urea Nitrogen 20 mg/dL (7-20) Creatinine 0.7 mg/dL (0.6-1.0) Estimated GFR (Cockcroft-Gault) 79.9 BUN/Creatinine Ratio 29 (6-20) H Glucose Level 124 mg/dL (70-99) H Lactic Acid Level 1.2 mmol/L (0.4-2.0) Calcium Level 9.2 mg/dL (8.5-10.1) Total Bilirubin 0.2 mg/dL (0.2-1.0) Aspartate Amino Transferase (AST) 21 U/L (15-37) Alanine Aminotransferase (ALT) 21 U/L (14-59) Alkaline Phosphatase 70 U/L (46-116) Creatine Kinase 29 U/L (26-192) BF-Qle-M-Type Natriuretic Peptide 3665 pg/mL (0-449) H Total Protein 5.6 g/dL (6.4-8.2) L Albumin 3.0 g/dL (3.4-5.0) L Albumin/Globulin Ratio 1.2 (1.0-1.7) Lipase 142 U/L (73-393) Influenza Type A Antigen Negative (NEGATIVE) Influenza Type B Antigen Negative (NEGATIVE) Urine Collection Type Unknown Urine Color Yellow Urine Clarity Cloudy Urine pH 7.0 Urine Specific [place] 1.015 Urine Protein Negative mg/dL (NEG-TRACE) Urine Glucose (UA) Negative mg/dL (NEG) Urine Ketones (Stick) Negative mg/dL (NEG) Urine Blood Negative (NEG) Urine Nitrite Negative (NEG) Urine Bilirubin Negative (NEG) Urine Urobilinogen Dipstick 1.0 mg/dL (0.2 mg/dL) Urine Leukocyte Esterase Large (NEG) Urine RBC Occ /HPF (0-2) Urine WBC 20-40 /HPF (0-4) Urine Squamous Epithelial Cells Few /LPF Urine Amorphous Sediment Present /HPF Urine Bacteria Moderate /HPF (0-FEW) Urine Mucus Mod /LPF Laboratory Tests 12/07/19 14:10 Laboratory Tests 12/07/19 14:10 ECHOCARDIOGRAM ECHOCARDIOGRAM <Conclusion> The left ventricle is normal size. The left ventricular systolic function is normal and the ejection fraction is within normal range. The Ejection Fraction is 55-60%. Apical motion consistent with pacemaker activation. There are device leads in the right ventricle and atrium. The aortic valve is calcified but appears to open well by Doppler interrogation. Doppler and Color Flow revealed no significant aortic regurgitation. There is no significant aortic valvular stenosis. Anterior mitral valve is severely thickened and there is severe anterior mitral annular calcification. Doppler and Color-flow revealed mild mitral regurgitation. Doppler and Color Flow revealed mild tricuspid regurgitation. The PA pressure was estimated at 45 mmHg. DATE: 11/16/19 1206 ASSESSMENT/PLAN ASSESSMENT/PLAN 1. Abdominal pain, constipation. CT with large amt of stool in the colon 2. Dyspnea with a/c CHF, pleural effusion 3. Acute on chronic diastolic CHF; LVEF 55-60% 4. CHB; s/p PPM 5. 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 Bi-V/GUEST SERVICES ASSOCIATE-D. Follows with Dr. Phillips with [facility]. Device check 10/13/19 with normal function. Thoracic Impedance trend stable. Echo last month with LVEF recovery at 55-60%. 6. PAD; had CHERRY CUTTER of common iliac artery. Revacularization was attempted 08/20, but was unsuccessful. Underwent recent iliac stenting with left to right femoral-femoral bypass as well as femoral endarterectomies 7. Hypertension; labile 8. COPD with chronic O2 9. Hypokalemia 10. UTI; as per PCP Recommendations Diuresis with monitoring of labs Replace K. Check Mg and replace as warranted Continue secondary prevention measures Resume home antiHTN therapy and titrate therapy as warranted APANRA PARRA MD 12/08/19 1640: CARDIAC CONSULT ASSESSMENT/PLAN ASSESSMENT/PLAN Patient seen and examined. Agree with STOCK SAW OPERATOR's assessment and plan. Continue diuresis for acute on chronic diastolic heart failure. Replace K Recent 2-D echo showed normalized left ventricle systolic function CHB s/p PPM with subsequent BiVICD/CRTD upgrade, clinically stable - follow up with primary residential leasing manager upon DC PAD stablr Thank you for your consultation MARTI DURAND APRN Dec 08, 2019 10:00 APARNA PARRA MD Dec 08, 2019 16:40
[2019-12-08 11:00] VITALS: BP 175/81
--- NOTE | 2019-12-08 11:59 | PDOC ---
[facility] PROGRESS NOTE Chief Complaint Chief Complaint Shortness of breath History of Present Illness History of Present Illness 12/08/19 Patient seen and examined He is still short of breath Chart reviewed Discussed with RN Vitals/I&O Vitals/I&O: Vital Signs Date Time Temp Pulse Resp B/P (MAP) Pulse Ox O2 Delivery O2 Flow Rate FiO2 12/08/19 11:00 98.4 91 16 175/81 (112) 99 Nasal Cannula 2.0 98.4 I & O 12/07/19 12/07/19 12/08/19 15:00 23:00 07:00 Intake Total 400 ml 240 ml Output Total 1 ml 2351 ml Balance 399 ml -2111 ml Physical Exam General: Alert, Cooperative, No acute distress Heart: Regular rate, Normal S1 Lungs: Clear Abdomen: Normal bowel sounds, Soft, No hepatosplenomegaly, No masses, Other (Diffuse mild tenderness) Extremities: No clubbing, No cyanosis, No edema, Normal pulses, No tenderness/swelling Skin: No rashes, No breakdown, No significant lesion Labs Labs: Laboratory Tests Test 12/07/19 14:10 12/07/19 14:43 12/07/19 14:55 White Blood Count 6.5 x10^3/uL (4.0-11.0) Red Blood Count 3.33 x10^6/uL (3.50-5.40) Hemoglobin 9.4 g/dL (12.0-15.5) Hematocrit 27.9 % (36.0-47.0) Mean Corpuscular Volume 84 fL (79-100) Mean Corpuscular Hemoglobin 28 pg (25-35) Mean Corpuscular Hemoglobin Concent 34 g/dL (31-37) Red Cell Distribution Width 14.4 % (11.5-14.5) Platelet Count 228 x10^3/uL (140-400) Neutrophils (%) (Auto) 78 % (31-73) Lymphocytes (%) (Auto) 12 % (24-48) Monocytes (%) (Auto) 8 % (0-9) Eosinophils (%) (Auto) 1 % (0-3) Basophils (%) (Auto) 1 % (0-3) Neutrophils # (Auto) 5.1 x10^3/uL (1.8-7.7) Lymphocytes # (Auto) 0.8 x10^3/uL (1.0-4.8) Monocytes # (Auto) 0.5 x10^3/uL (0.0-1.1) Eosinophils # (Auto) 0.1 x10^3/uL (0.0-0.7) Basophils # (Auto) 0.1 x10^3/uL (0.0-0.2) Prothrombin Time 11.9 SEC (11.7-14.0) Prothromb Time International Ratio 0.9 (0.8-1.1) Sodium Level 135 mmol/L (136-145) Potassium Level 3.4 mmol/L (3.5-5.1) Chloride Level 99 mmol/L (98-107) Carbon Dioxide Level 34 mmol/L (21-32) Anion Gap 2 (6-14) Blood Urea Nitrogen 20 mg/dL (7-20) Creatinine 0.7 mg/dL (0.6-1.0) Estimated GFR (Cockcroft-Gault) 79.9 BUN/Creatinine Ratio 29 (6-20) Glucose Level 124 mg/dL (70-99) Lactic Acid Level 1.2 mmol/L (0.4-2.0) Calcium Level 9.2 mg/dL (8.5-10.1) Total Bilirubin 0.2 mg/dL (0.2-1.0) Aspartate Amino Transf (AST/SGOT) 21 U/L (15-37) Alanine Aminotransferase (ALT/SGPT) 21 U/L (14-59) Alkaline Phosphatase 70 U/L (46-116) Creatine Kinase 29 U/L (26-192) ME-Lki-O-Type Natriuretic Peptide 3665 pg/mL (0-449) Total Protein 5.6 g/dL (6.4-8.2) Albumin 3.0 g/dL (3.4-5.0) Albumin/Globulin Ratio 1.2 (1.0-1.7) Lipase 142 U/L (73-393) Influenza Type A Antigen Negative (NEGATIVE) Influenza Type B Antigen Negative (NEGATIVE) Urine Collection Type Unknown Urine Color Yellow Urine Clarity Cloudy Urine pH 7.0 Urine Specific [place] 1.015 Urine Protein Negative mg/dL (NEG-TRACE) Urine Glucose (UA) Negative mg/dL (NEG) Urine Ketones (Stick) Negative mg/dL (NEG) Urine Blood Negative (NEG) Urine Nitrite Negative (NEG) Urine Bilirubin Negative (NEG) Urine Urobilinogen Dipstick 1.0 mg/dL (0.2 mg/dL) Urine Leukocyte Esterase Large (NEG) Urine RBC Occ /HPF (0-2) Urine WBC 20-40 /HPF (0-4) Urine Squamous Epithelial Cells Few /LPF Urine Amorphous Sediment Present /HPF Urine Bacteria Moderate /HPF (0-FEW) Urine Mucus Mod /LPF Review of Systems Review of Systems: Complains of shortness of breath complains of weakness Assessment and Plan Assessmemt and Plan Problems Medical Problems: (1) Abdominal pain Status: Acute (2) Anemia Status: Acute (3) CHF (congestive heart failure) Status: Acute (4) Constipation Status: Acute (5) Hypoalbuminemia Status: Acute (6) Hypokalemia Status: Acute (7) Hyponatremia Status: Acute (8) Shortness of breath Status: Acute (9) UTI (urinary tract infection) due to urinary indwelling [place] catheter Status: Acute Intractable abdominal pain - with severe Constipation, will start bowel regimen Shortness of breath - with pleural effusions, treated for acute CHF. 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 Chronic obstructive pulmonary disease - will consult pulmonology for further recs Status post pacemaker placement - stable Hypertension - cont meds UTI - rocephin, f/u culture Comment Review of Relevant I have reviewed the following items nahomi (where applicable) has been applied. Medications: Current Medications Medications (Trade) Dose Ordered Sig/Reginald Route PRN Reason Start Time Stop Time Status Last Admin Dose Admin Iohexol (Omnipaque 240 Mg/ml) 30 ml 1X ONCE PO 12/07/19 15:00 12/07/19 15:01 DC 12/07/19 15:40 Iohexol (Omnipaque 300 Mg/ml) 75 ml 1X ONCE IV 12/07/19 15:00 12/07/19 15:01 DC 12/07/19 15:40 Ceftriaxone Sodium (Rocephin) 1 gm 1X ONCE IVP 12/07/19 17:30 12/07/19 17:31 DC 12/07/19 19:13 Furosemide (Lasix) 20 mg 1X ONCE IVP 12/07/19 17:45 12/07/19 17:46 DC 12/07/19 19:13 Aspirin (Children'S Aspirin) 81 mg DAILY PO 12/08/19 09:00 12/08/19 09:52 Diltiazem HCl (Cardizem 24hr Cd) 120 mg DAILY PO 12/08/19 09:00 12/08/19 09:52 Acetaminophen/ Hydrocodone Bitart (Lortab 5/325) 1 tab PRN Q4HRS PRN PO MODERATE PAIN 4-6 12/07/19 21:45 12/07/19 23:41 Tramadol HCl (Ultram) 25 mg PRN Q6HRS PRN PO MODERATE PAIN 4-6 12/07/19 21:45 12/07/19 23:42 Losartan Potassium (Cozaar) 100 mg DAILY PO 12/08/19 09:00 12/08/19 09:52 Ceftriaxone Sodium (Rocephin) 1 gm Q24H IVP 12/08/19 09:30 12/09/19 09:31 12/08/19 09:54 ARIANE HARRIS III DO Dec 08, 2019 11:59
[2019-12-08] MEDS ORDERED: POTASSIUM CHLORIDE 20 MEQ TABLET.ER. PO ONE (14:00)
[2019-12-08] MEDS ORDERED: FUROSEMIDE 20 MG/2 ML VIAL. IVP ONE (14:00)
--- NOTE | 2019-12-08 14:06 | CONS ---
DATE OF CONSULTATION: PULMONARY CONSULTATION ATTENDING PHYSICIAN: Prashanth Wiggins MD REASON FOR CONSULTATION: Dyspnea and abnormal chest x-ray. HISTORY OF PRESENT ILLNESS: The patient is an 84-year-old female who presented from [facility] with shortness of breath and also with abdominal pain. The patient states that shortness of breath started about 24-48 hours before coming to the hospital. She also had lower extremity edema. The patient is normally on oxygen 2 liters at night and 3 liters during the day. She has 25 years of tobacco use before quitting. She also sees Cardiology and train attendant, Dr. Wellington at . The patient's chest x-ray on admission was reviewed and was consistent with congestive heart failure with stable moderate right pleural effusion and also right lower lobe atelectasis associated with effusion and underlying interstitial markings being prominent. She also had a CT abdomen and pelvis, which showed large quantity of stool throughout the colon and moderate sized right pleural effusion. She says she has not felt any better. She is currently on oxygen at 3 liters with 99% saturations. No nausea, vomiting, no headache. No diarrhea. PAST MEDICAL HISTORY: Significant for COPD, history of chronic hypoxic respiratory failure, history of congestive heart failure. PAST SURGICAL HISTORY: No recent surgery. ALLERGIES: PREDNISONE. FAMILY HISTORY: Noncontributory to lungs. SOCIAL HISTORY: Quit tobacco, but before quitting smoked for 25 years. CURRENT MEDICATIONS: Reviewed. As listed in the [facility] including antibiotics. She is on DuoNeb and Pulmicort. She received 20 of Lasix IV, one-time dose. REVIEW OF SYSTEMS: Twelve-point system obtained. Pertinent positives discussed in my present illness, otherwise noncontributory. All systems that were negative were reviewed as well. PHYSICAL EXAMINATION: GENERAL: She is comfortable while on 2 liters oxygen flow. VITAL SIGNS: Blood pressure 175/81, afebrile. HEENT: Sclerae nonicteric. NECK: Supple. LUNGS: With diminished breath sounds right base. CARDIOVASCULAR: With a regular rate. ABDOMEN: Soft. EXTREMITIES: With 1+ pitting edema. LABORATORY DATA: Reviewed. Influenza screen is negative. BUN is 20, creatinine 0.7, potassium 3.4. Albumin 3. White cell count 6.5, hemoglobin 9.4 and platelets are 228. IMPRESSION: 1. Dyspnea with acute on chronic hypoxic respiratory failure secondary to acute on chronic diastolic heart failure. Cannot exclude systolic heart failure. 2. Abnormal chest x-ray consistent with congestive heart failure. She has interstitial prominence along with right pleural effusion. 3. History of underlying chronic obstructive pulmonary disease. 4. Moderate protein-calorie malnutrition. 5. No clinical symptoms suggesting pneumonia. 6. Abnormal CT abdomen consistent with a large quantity of stool throughout the colon. RECOMMENDATIONS: 1. From a pulmonary standpoint, continue with present oxygen 2 liters. 2. Gentle diuresis. 3. Replace potassium. 4. Follow Cardiology consult and recommendation. 5. Further diuresis per Cardiology. 6. Obtain echocardiogram. 7. I will follow along with you and I would recommend followup chest x-ray. MASHA GILES MD DR: KIZZY/jame JOB#: [id number] / [id number]
[2019-12-08 14:15] VITALS: BP 185/72
[2019-12-08] MEDS: PSYLLIUM HUSK (SUGAR FREE) 1 PKT PACKET PO SCH ×2 (15:26→20:39)
[2019-12-08] MEDS: POLYETHYLENE GLYCOL 3350 17 GM PACKET. PO SCH ×2 (15:27→20:39)
[2019-12-08 19:00] VITALS: BP 189/87
[2019-12-08] MEDS: ATORVASTATIN CALCIUM 20 MG TABLET PO SCH (20:39)
[2019-12-08] MEDS: traMADol 50 MG TABLET PO PRN (20:40)
[2019-12-08 23:00] VITALS: BP 183/88
[2019-12-09 03:00] VITALS: BP 176/80
[2019-12-09] MEDS: HYDROcodone/APAP 5/325MG 1 TAB TABLET PO PRN ×3 (03:18→19:32)
[2019-12-09] MEDS ORDERED: FUROSEMIDE 20 MG/2 ML VIAL. IVP ONE ×2 (06:00→08:00)
[2019-12-09 06:54] VITALS: BP 180/87
[2019-12-09] MEDS: IPRATRPIUM/ALBUTEROL 0.5/2.5MG 3 ML NEBU. NEB SCH ×3 (07:28→16:35)
[2019-12-09] MEDS: BUDESONIDE 0.5 MG/2 ML NEBU. NEB SCH (07:28)
[2019-12-09] MEDS: busPIRone 5 MG TABLET. PO SCH ×2 (09:00→19:31)
[2019-12-09] MEDS: cefTRIAXone IV Push 1 GM VIAL. IVP SCH (09:30)
[2019-12-09] MEDS: ASPIRIN CHEWABLE 81 MG TABLET. PO SCH (09:31)
[2019-12-09] MEDS: DRONABINOL 2.5 MG CAPSULE. PO SCH ×2 (09:32→19:31)
[2019-12-09] MEDS: LOSARTAN POTASSIUM 50 MG TABLET. PO SCH (09:32)
[2019-12-09] MEDS: LACTULOSE 20 GM/30 ML SOLUTION. PO SCH ×2 (09:32→19:31)
--- NOTE | 2019-12-09 10:03 | PDOC ---
PROGRESS NOTES Chief Complaint Chief Complaint Shortness of breath Intractable abdominal pain - with severe Constipation, will CONT bowel regimen Shortness of breath - with pleural effusions, treated for acute CHF. Will consult cardiology, she wants care coordinated through her [facility] aligner typewriter S table moderate right pleural effusion with middle and lower lobe infiltrate or compressive atelectasis. Anemia - worse than in 2019 CHF (congestive heart failure) - acute diastolic, Severe protein calorie malnutrition - Hypoalbuminemia Hypokalemia - replace Hyponatremia - replace, nutrition to see Chronic respiratory failure - will wean O2 as tolerated Compression deformity in L2, compression deformity in T12, status post kyphoplasty. Chronic obstructive pulmonary disease - will consult pulmonology for further recs Status post pacemaker placement - stable Hypertension - cont meds Compression deformity at L2 has progressed when compared to the radiographs on 08/01/2016. on bone scan, 11/10, Increased activity is seen involving T7 and T12 and L2 consistent with recent OSTEOPOROTIC compression fractures. compression deformities in the lower thoracic spine with 5 mm of retropulsion at the superior endplate of T12. gait instability pvd bi-common femoral graft noted. SEVERE PROTEIN-CALORIC MALNUTRITION UTI - large quantity of stool throughout the colon. Marked calcific involvement throughout the aorta and iliac arteries noted. Femoral to femoral bypass graft is present. Fluid collection about the right common femoral vein which may represent a seroma or old hematoma is present measuring up to 2.7 cm diameter. Significant calcification involvement involving the proximal celiac and superior mesenteric arteries noted. 12/09 gi consult // fe panel, she does not want an extensive work-up d/w son in room History of Present Illness History of Present Illness 12/08/19 Patient seen and examined He is still short of breath Chart reviewed Discussed with RN Vitals Vitals Vital Signs Date Time Temp Pulse Resp B/P (MAP) Pulse Ox O2 Delivery O2 Flow Rate FiO2 12/09/19 09:35 Nasal Cannula 3.0 12/09/19 09:32 168/93 12/09/19 09:32 101 12/09/19 06:54 98.0 18 96 98.0 Physical Exam General: Alert (oriented to person and place), Cooperative, No acute distress Heart: Regular rate, Normal S1, Normal S2 Lungs: Clear Abdomen: Normal bowel sounds, Soft, Other (diffuse tenderness ) Extremities: Other (trace LLE and 1+ RLE edema ) Skin: No significant lesion, Other Labs LABS EXAM: Chest, single view. HISTORY: Congestive heart failure. COMPARISON: 12/07/2019 FINDINGS: A frontal view of the chest is obtained. There has been no change in a moderate right pleural effusion with right middle and lower lobe infiltrate. There is a small left pleural effusion. There are coarse likely chronic interstitial changes. There is cardiomegaly. There is a cardiac pacemaker unchanged in position. IMPRESSION: 1. Stable moderate right pleural effusion with middle and lower lobe infiltrate or compressive atelectasis. 2. Small left pleural effusion. 3. Cardiomegaly. 4. Suspected chronic coarse and interstitial changes. Electronically signed by: Meredith Syed MD (12/09/2019 1:18 PM) [place] [id number] DICTATED and SIGNED BY: MEREDITH SYED MD SEX: F EXAM STATUS: REG ER ORD. PHYSICIAN: RUIZ CHAVEZ MD REASON: shortness of breath, abdominal pain PROCEDURE: CT ABD PELV W/ORAL&IV CONTRAST Examination: CT ABD PELV W/ORAL IV CONTRAST History: Shortness of breath and abdominal pain Comparison/Correlation: 09/16/2018 CT abdomen and pelvis without contrast Findings: Axial images of the abdomen and pelvis were obtained following IV contrast. Sagittal and coronal reformatted images were provided. Moderate size right pleural effusion is present with adjacent atelectatic consolidation. Small left pleural effusion is present. Pacemaker and associated leads noted. Mild anasarca noted. Mitral annular calcification is evident. Small pericardial effusion noted. Calcified granulomas involving the liver and spleen. Small low-attenuation lesion involving the liver on axial image 14 of series 2 which may represent a cyst is present. Pancreas is unremarkable. Right kidney is unremarkable for a left renal lower pole scarring is evident. Large quantity of stool is noted throughout the colon. No extraluminal gas or bowel obstruction. No ascites or pelvic free fluid. Hatfield catheter is present within the urinary bladder which is decompressed. Marked calcific involvement throughout the aorta and iliac arteries noted. Femoral to femoral bypass graft is present. Fluid collection about the right common femoral vein which may represent a seroma or old hematoma is present measuring up to 2.7 cm diameter. Significant calcification involvement involving the proximal celiac and superior mesenteric arteries noted. Uterus is atrophic or absent. No enlarged abdominal or pelvic lymph nodes L2 compression fracture deformities present. Kyphoplasty T12 and L2 noted. Impression: Large quantity of stool throughout the colon. No acute inflammatory process within the abdomen or pelvis. Moderate-sized right pleural effusion and adjacent atelectasis. Small left pleural effusion. March also involvement of the abdominal aorta and its branches. PQRS Compliance Statement: One or more of the following individualized dose reduction techniques were utilized for this examination: 1. Automated exposure control 2. Adjustment of the mA and/or kV according to patient size 3. Use of iterative reconstruction technique Electronically signed by: Pacheco James MD (12/07/2019 4:14 PM) [facility] DICTATED and SIGNED BY: PACHECO JAMES MD DATE: 12/07/19 1614 Laboratory Tests Test 12/08/19 12:15 Magnesium Level 1.8 mg/dL (1.8-2.4) Assessment and Plan Assessmemt and Plan Problems Medical Problems: (1) Abdominal pain Status: Acute (2) Anemia Status: Acute (3) CHF (congestive heart failure) Status: Acute (4) Constipation Status: Acute (5) Hypoalbuminemia Status: Acute (6) Hypokalemia Status: Acute (7) Hyponatremia Status: Acute (8) Shortness of breath Status: Acute (9) UTI (urinary tract infection) due to urinary indwelling [place] catheter Status: Acute Comment Review of Relevant I have reviewed the following items nahomi (where applicable) has been applied. Labs Laboratory Tests Test 12/07/19 14:10 12/07/19 14:43 12/07/19 14:55 12/08/19 12:15 White Blood Count 6.5 x10^3/uL (4.0-11.0) Red Blood Count 3.33 x10^6/uL (3.50-5.40) Hemoglobin 9.4 g/dL (12.0-15.5) Hematocrit 27.9 % (36.0-47.0) Mean Corpuscular Volume 84 fL (79-100) Mean Corpuscular Hemoglobin 28 pg (25-35) Mean Corpuscular Hemoglobin Concent 34 g/dL (31-37) Red Cell Distribution Width 14.4 % (11.5-14.5) Platelet Count 228 x10^3/uL (140-400) Neutrophils (%) (Auto) 78 % (31-73) Lymphocytes (%) (Auto) 12 % (24-48) Monocytes (%) (Auto) 8 % (0-9) Eosinophils (%) (Auto) 1 % (0-3) Basophils (%) (Auto) 1 % (0-3) Neutrophils # (Auto) 5.1 x10^3/uL (1.8-7.7) Lymphocytes # (Auto) 0.8 x10^3/uL (1.0-4.8) Monocytes # (Auto) 0.5 x10^3/uL (0.0-1.1) Eosinophils # (Auto) 0.1 x10^3/uL (0.0-0.7) Basophils # (Auto) 0.1 x10^3/uL (0.0-0.2) Prothrombin Time 11.9 SEC (11.7-14.0) Prothromb Time International Ratio 0.9 (0.8-1.1) Sodium Level 135 mmol/L (136-145) Potassium Level 3.4 mmol/L (3.5-5.1) Chloride Level 99 mmol/L (98-107) Carbon Dioxide Level 34 mmol/L (21-32) Anion Gap 2 (6-14) Blood Urea Nitrogen 20 mg/dL (7-20) Creatinine 0.7 mg/dL (0.6-1.0) Estimated GFR (Cockcroft-Gault) 79.9 BUN/Creatinine Ratio 29 (6-20) Glucose Level 124 mg/dL (70-99) Lactic Acid Level 1.2 mmol/L (0.4-2.0) Calcium Level 9.2 mg/dL (8.5-10.1) Total Bilirubin 0.2 mg/dL (0.2-1.0) Aspartate Amino Transf (AST/SGOT) 21 U/L (15-37) Alanine Aminotransferase (ALT/SGPT) 21 U/L (14-59) Alkaline Phosphatase 70 U/L (46-116) Creatine Kinase 29 U/L (26-192) VU-Tuq-S-Type Natriuretic Peptide 3665 pg/mL (0-449) Total Protein 5.6 g/dL (6.4-8.2) Albumin 3.0 g/dL (3.4-5.0) Albumin/Globulin Ratio 1.2 (1.0-1.7) Lipase 142 U/L (73-393) Influenza Type A Antigen Negative (NEGATIVE) Influenza Type B Antigen Negative (NEGATIVE) Urine Collection Type Unknown Urine Color Yellow Urine Clarity Cloudy Urine pH 7.0 Urine Specific [place] 1.015 Urine Protein Negative mg/dL (NEG-TRACE) Urine Glucose (UA) Negative mg/dL (NEG) Urine Ketones (Stick) Negative mg/dL (NEG) Urine Blood Negative (NEG) Urine Nitrite Negative (NEG) Urine Bilirubin Negative (NEG) Urine Urobilinogen Dipstick 1.0 mg/dL (0.2 mg/dL) Urine Leukocyte Esterase Large (NEG) Urine RBC Occ /HPF (0-2) Urine WBC 20-40 /HPF (0-4) Urine Squamous Epithelial Cells Few /LPF Urine Amorphous Sediment Present /HPF Urine Bacteria Moderate /HPF (0-FEW) Urine Mucus Mod /LPF Magnesium Level 1.8 mg/dL (1.8-2.4) Laboratory Tests Test 12/08/19 12:15 Magnesium Level 1.8 mg/dL (1.8-2.4) Medications Current Medications Iohexol (Omnipaque 240 Mg/ml) 30 ml 1X ONCE PO Last administered on 12/07/19at 15:40; Start 12/07/19 at 15:00; Stop 12/07/19 at 15:01; Status DC Iohexol (Omnipaque 300 Mg/ml) 75 ml 1X ONCE IV Last administered on 12/07/19at 15:40; Start 12/07/19 at 15:00; Stop 12/07/19 at 15:01; Status DC Info (CONTRAST GIVEN -- Rx MONITORING) 1 each PRN DAILY PRN MC SEE COMMENTS; Start 12/07/19 at 15:00; Stop 12/09/19 at 14:59 Ceftriaxone Sodium (Rocephin) 1 gm 1X ONCE IVP Last administered on 12/07/19at 19:13; Start 12/07/19 at 17:30; Stop 12/07/19 at 17:31; Status DC Furosemide (Lasix) 20 mg 1X ONCE IVP Last administered on 12/07/19at 19:13; Start 12/07/19 at 17:45; Stop 12/07/19 at 17:46; Status DC Albuterol Sulfate (Ventolin Neb Soln) 2.5 mg PRN Q6HRS PRN INH SHORTNESS OF BREATH; Start 12/07/19 at 21:45 Aspirin (Children'S Aspirin) 81 mg DAILY PO Last administered on 12/09/19 09:31; Start 12/08/19 at 09:00 Buspirone HCl (Buspar) 5 mg BID PO Last administered on 12/08/19 20:40; Start 12/07/19 at 22:00 Diltiazem HCl (Cardizem 24hr Cd) 120 mg DAILY PO Last administered on 12/09/19 09:32; Start 12/08/19 at 09:00 Dronabinol (Marinol) 2.5 mg BID PO Last administered on 12/09/19 09:32; Start 12/08/19 at 09:00 Acetaminophen/ Hydrocodone Bitart (Lortab 5/325) 1 tab PRN Q4HRS PRN PO MODERATE PAIN 4-6 Last administered on 12/09/19 09:35; Start 12/07/19 at 21:45 Lactulose (Lactulose) 20 gm BID PO Last administered on 12/09/19 09:32; Start 12/08/19 at 09:00 Tramadol HCl (Ultram) 25 mg PRN Q6HRS PRN PO MILD PAIN 1-3 Last administered on 12/08/19 20:40; Start 12/07/19 at 21:45 Budesonide (Pulmicort) 0.5 mg RTBID NEB ; Start 12/08/19 at 08:00 Albuterol/ Ipratropium (Duoneb) 3 ml RTQID NEB ; Start 12/08/19 at 08:00 Losartan Potassium (Cozaar) 100 mg DAILY PO Last administered on 12/09/19 09:32; Start 12/08/19 at 09:00 Bisacodyl (Dulcolax Supp) 10 mg 1X ONCE DE ; Start 12/07/19 at 22:00; Stop 12/07/19 at 22:01; Status DC Bisacodyl (Dulcolax Supp) 10 mg PRN DAILY PRN DE CONSTIPATION Last administered on 12/08/19 15:25; Start 12/07/19 at 21:45 Polyethylene Glycol (miraLAX PACKET) 17 gm QHS PO Last administered on 1/7/20at 20:39; Start 12/07/19 at 22:00 Psyllium Hydrophilic Mucilloid (Metamucil Fiber Packet) 1 pkt QHS PO Last administered on 12/08/19 20:39; Start 12/07/19 at 22:00 Ceftriaxone Sodium (Rocephin) 1 gm Q24H IVP Last administered on 12/08/19 09:54; Start 12/08/19 at 09:30; Stop 12/09/19 at 09:31; Status DC Pharmacy Consult (C.diff Med Screen By Rx) 1 each 1X ONCE MC ; Start 12/08/19 at 03:30; Stop 12/08/19 at 03:31; Status DC Furosemide (Lasix) 20 mg 1X ONCE IVP Last administered on 12/08/19 15:24; Start 12/08/19 at 14:00; Stop 12/08/19 at 14:01; Status DC Potassium Chloride (Klor-Con) 40 meq 1X ONCE PO Last administered on 12/08/19 15:24; Start 12/08/19 at 14:00; Stop 12/08/19 at 14:01; Status DC Atorvastatin Calcium (Lipitor) 20 mg QHS PO Last administered on 12/08/19at 20:39; Start 12/08/19 at 21:00 Furosemide (Lasix) 20 mg 1X ONCE IVP Last administered on 12/09/19at 09:30; Start 12/09/19 at 08:00; Stop 12/09/19 at 08:01; Status DC Furosemide (Lasix) 20 mg 1X ONCE IVP Last administered on 12/09/19at 05:21; Start 12/09/19 at 06:00; Stop 12/09/19 at 06:01; Status DC Active Scripts Active Marinol (Dronabinol) 2.5 Mg Capsule 2.5 Mg PO BID 30 Days Procalamine Iv Solution (Aa 3%/Electrolyte-Tpn Soln/Gly) 1,000 Ml Iv.soln 1,000 Ml IV DAILY 3 Days Phenazopyridine Hcl 200 Mg Tablet 200 Mg PO PRN TID PRN 10 Days Lidocaine PATCH (Lidocaine) 1 Each Adh..patch 1 Patch TD DAILY Buspirone Hcl 5 Mg Tablet 5 Mg PO BID Restoril (Temazepam) 7.5 Mg Capsule 7.5 Mg PO PRN QHS PRN Hydrocodone-Apap 5-325 (Hydrocodone Bit/Acetaminophen) 1 Tab Tablet 1 Tab PO PRN Q4HRS PRN Ultram (Tramadol Hcl) 50 Mg Tablet 25 Mg PO Q6H PRN Lactulose 20 Gm/30 Ml Solution 20 Gm PO BID 5 Days Diltiazem 24HR Cd (Diltiazem Hcl) 120 Mg Cap.er.24h 120 Mg PO DAILY SIG: ONE TAB DAILY Reported Cyclobenzaprine Hcl 10 Mg Tablet 10 Mg PO BID Proair Hfa Inhaler (Albuterol Sulfate) 8.5 Gm Hfa.aer.ad 1 Puff INH PRN Q6HRS PRN Spiriva (Tiotropium [place]) 18 Mcg Cap.w.dev 2 Inh IH DAILY Advair 250-50 Diskus (Fluticasone/Salmeterol) 1 Each Disk.w.dev 1 Inh IH BID Vitamin C (Ascorbic Acid) 1,000 Mg Tablet 1,000 Mg PO DAILY Fish Oil [place]-3 EC 1,200 mg ([place]-3/Dha/Epa/Fish Oil) 1 Each Capsule.dr 1 Each PO BID Calcium 600 + Vit D 200 Tablet (Calcium Carbonate/Vitamin D3) 1 Each Tablet 1 Each PO BID Aspirin 81 Mg Tab.chew 81 Mg PO DAILY D3-2000 (Cholecalciferol (Vitamin D3)) 2,000 Unit Capsule 2,000 Unit PO DAILY Diovan (Valsartan) 160 Mg Tablet 160 Mg PO BID Vitals/I & O Vital Sign - Last 24 Hours 12/08/19 12/08/19 12/08/19 12/08/19 11:00 14:15 19:00 20:00 Temp 98.4 98.5 98.3 98.4 98.5 98.3 Pulse 91 90 104 Resp 16 16 16 B/P (MAP) 175/81 (112) 185/72 (109) 189/87 (121) Pulse Ox 99 98 99 O2 Delivery Nasal Cannula Nasal Cannula Nasal Cannula Nasal Cannula O2 Flow Rate 2.0 2.0 2.0 2.0 12/08/19 12/08/19 12/08/19 12/09/19 20:40 21:40 23:00 03:00 Temp 98.5 98.5 98.5 98.5 Pulse 102 95 Resp 18 16 18 B/P (MAP) 183/88 (119) 176/80 (112) Pulse Ox 98 98 95 97 O2 Delivery Nasal Cannula Nasal Cannula Nasal Cannula Nasal Cannula O2 Flow Rate 2.0 2.0 2.0 2.0 12/09/19 12/09/19 12/09/19 12/09/19 03:18 04:18 06:54 09:32 Temp 98.0 98.0 Pulse 100 101 Resp 18 18 18 B/P (MAP) 180/87 (118) Pulse Ox 95 95 96 O2 Delivery Nasal Cannula Nasal Cannula Nasal Cannula O2 Flow Rate 2.0 2.0 2.0 12/09/19 12/09/19 09:32 09:35 B/P (MAP) 168/93 O2 Delivery Nasal Cannula O2 Flow Rate 3.0 Intake and Output 12/08/19 12/08/19 12/09/19 15:00 23:00 07:00 Intake Total 420 ml 300 ml 50 ml Output Total 1700 ml 250 ml Balance 420 ml -1400 ml -200 ml LUCIO PLUNKETT MD Dec 09, 2019 10:03
[2019-12-09 10:15] VITALS: BP 159/86
--- NOTE | 2019-12-09 11:24 | PDOC ---
PULMONARY PROGRESS NOTES Subjective STILL SOA Vitals Vital Signs Date Time Temp Pulse Resp B/P (MAP) Pulse Ox O2 Delivery O2 Flow Rate FiO2 12/09/19 10:15 98.3 102 18 159/86 (110) 97 Nasal Cannula 2.0 98.3 General: Alert, No acute distress Lungs: Other (decrease right base) Cardiovascular: S1 Abdomen: Soft Neuro Exam: Alert Extremities: Other (1+edema) Skin: Warm Labs Laboratory Tests Test 12/07/19 14:10 12/07/19 14:43 12/07/19 14:55 12/08/19 12:15 White Blood Count 6.5 x10^3/uL (4.0-11.0) Red Blood Count 3.33 x10^6/uL (3.50-5.40) Hemoglobin 9.4 g/dL (12.0-15.5) Hematocrit 27.9 % (36.0-47.0) Mean Corpuscular Volume 84 fL (79-100) Mean Corpuscular Hemoglobin 28 pg (25-35) Mean Corpuscular Hemoglobin Concent 34 g/dL (31-37) Red Cell Distribution Width 14.4 % (11.5-14.5) Platelet Count 228 x10^3/uL (140-400) Neutrophils (%) (Auto) 78 % (31-73) Lymphocytes (%) (Auto) 12 % (24-48) Monocytes (%) (Auto) 8 % (0-9) Eosinophils (%) (Auto) 1 % (0-3) Basophils (%) (Auto) 1 % (0-3) Neutrophils # (Auto) 5.1 x10^3/uL (1.8-7.7) Lymphocytes # (Auto) 0.8 x10^3/uL (1.0-4.8) Monocytes # (Auto) 0.5 x10^3/uL (0.0-1.1) Eosinophils # (Auto) 0.1 x10^3/uL (0.0-0.7) Basophils # (Auto) 0.1 x10^3/uL (0.0-0.2) Prothrombin Time 11.9 SEC (11.7-14.0) Prothromb Time International Ratio 0.9 (0.8-1.1) Sodium Level 135 mmol/L (136-145) Potassium Level 3.4 mmol/L (3.5-5.1) Chloride Level 99 mmol/L (98-107) Carbon Dioxide Level 34 mmol/L (21-32) Anion Gap 2 (6-14) Blood Urea Nitrogen 20 mg/dL (7-20) Creatinine 0.7 mg/dL (0.6-1.0) Estimated GFR (Cockcroft-Gault) 79.9 BUN/Creatinine Ratio 29 (6-20) Glucose Level 124 mg/dL (70-99) Lactic Acid Level 1.2 mmol/L (0.4-2.0) Calcium Level 9.2 mg/dL (8.5-10.1) Total Bilirubin 0.2 mg/dL (0.2-1.0) Aspartate Amino Transf (AST/SGOT) 21 U/L (15-37) Alanine Aminotransferase (ALT/SGPT) 21 U/L (14-59) Alkaline Phosphatase 70 U/L (46-116) Creatine Kinase 29 U/L (26-192) QS-Sfo-V-Type Natriuretic Peptide 3665 pg/mL (0-449) Total Protein 5.6 g/dL (6.4-8.2) Albumin 3.0 g/dL (3.4-5.0) Albumin/Globulin Ratio 1.2 (1.0-1.7) Lipase 142 U/L (73-393) Influenza Type A Antigen Negative (NEGATIVE) Influenza Type B Antigen Negative (NEGATIVE) Urine Collection Type Unknown Urine Color Yellow Urine Clarity Cloudy Urine pH 7.0 Urine Specific [place] 1.015 Urine Protein Negative mg/dL (NEG-TRACE) Urine Glucose (UA) Negative mg/dL (NEG) Urine Ketones (Stick) Negative mg/dL (NEG) Urine Blood Negative (NEG) Urine Nitrite Negative (NEG) Urine Bilirubin Negative (NEG) Urine Urobilinogen Dipstick 1.0 mg/dL (0.2 mg/dL) Urine Leukocyte Esterase Large (NEG) Urine RBC Occ /HPF (0-2) Urine WBC 20-40 /HPF (0-4) Urine Squamous Epithelial Cells Few /LPF Urine Amorphous Sediment Present /HPF Urine Bacteria Moderate /HPF (0-FEW) Urine Mucus Mod /LPF Magnesium Level 1.8 mg/dL (1.8-2.4) Laboratory Tests Test 12/08/19 12:15 Magnesium Level 1.8 mg/dL (1.8-2.4) Medications Active Scripts Medications Dose Route/Sig Max Daily Dose Days Date Category Dose Instructions Marinol (Dronabinol) 2.5 Mg Capsule 2.5 Mg PO BID 30 11/16/19 Rx Procalamine Iv Solution (Aa 3%/Electrolyte-Tpn Soln/Gly) 1,000 Ml Iv.soln 1,000 Ml IV DAILY 3 11/16/19 Rx Phenazopyridine Hcl 200 Mg Tablet 200 Mg PO PRN TID PRN 10 11/16/19 Rx Lidocaine PATCH (Lidocaine) 1 Each Adh..patch 1 Patch TD DAILY 11/16/19 Rx Buspirone Hcl 5 Mg Tablet 5 Mg PO BID 11/16/19 Rx Restoril (Temazepam) 7.5 Mg Capsule 7.5 Mg PO PRN QHS PRN 11/16/19 Rx Hydrocodone-Apap 5-325 (Hydrocodone Bit/Acetaminophen) 1 Tab Tablet 1 Tab PO PRN Q4HRS PRN 11/16/19 Rx Ultram (Tramadol Hcl) 50 Mg Tablet 25 Mg PO Q6H PRN 11/16/19 Rx Lactulose 20 Gm/30 Ml Solution 20 Gm PO BID 5 09/16/18 Rx Diltiazem 24HR Cd (Diltiazem Hcl) 120 Mg Cap.er.24h 120 Mg PO DAILY 08/11/16 Rx SIG: ONE TAB DAILY Cyclobenzaprine Hcl 10 Mg Tablet 10 Mg PO BID 08/10/16 Reported Proair Hfa Inhaler (Albuterol Sulfate) 8.5 Gm Hfa.aer.ad 1 Puff INH PRN Q6HRS PRN 08/10/16 Reported Spiriva (Tiotropium [place]) 18 Mcg Cap.w.dev 2 Inh IH DAILY 08/10/16 Reported Advair 250-50 Diskus (Fluticasone/Salmeterol) 1 Each Disk.w.dev 1 Inh IH BID 08/10/16 Reported Vitamin C (Ascorbic Acid) 1,000 Mg Tablet 1,000 Mg PO DAILY 08/10/16 Reported Fish Oil [place]-3 EC 1,200 mg ([place]-3/Dha/Epa/Fish Oil) 1 Each Capsule.dr 1 Each PO BID 08/10/16 Reported Calcium 600 + Vit D 200 Tablet (Calcium Carbonate/Vitamin D3) 1 Each Tablet 1 Each PO BID 08/10/16 Reported Aspirin 81 Mg Tab.chew 81 Mg PO DAILY 08/10/16 Reported D3-2000 (Cholecalciferol (Vitamin D3)) 2,000 Unit Capsule 2,000 Unit PO DAILY 08/10/16 Reported Diovan (Valsartan) 160 Mg Tablet 160 Mg PO BID 08/10/16 Reported Impression . 1. Dyspnea with acute on chronic hypoxic respiratory failure secondary to acute on chronic diastolic heart failure. 2. Abnormal chest x-ray consistent with congestive heart failure. She has interstitial prominence along with right pleural effusion. 3. History of underlying chronic obstructive pulmonary disease. 4. Moderate protein-calorie malnutrition. 5. No clinical symptoms suggesting pneumonia. 6. Abnormal CT abdomen consistent with a large quantity of stool throughout the colon. Plan . 1. From a pulmonary standpoint, continue with present oxygen 2 liters. still madhu / cxr with persistent effusion and CHF 2. Gentle diuresis. 3. Replace potassium. 4. Follow Cardiology consult and recommendation. 5. Cardiology rec 6. echocardiogram.reviewed 7. I will follow along with you and I would recommend followup chest x-ray. MASHA GILES MD Dec 09, 2019 11:24
[2019-12-09] MEDS ORDERED: FUROSEMIDE 40 MG/4 ML VIAL. IVP ONE (11:30)
[2019-12-09] MEDS ORDERED: POTASSIUM CHLORIDE 10 MEQ TABLET.ER. PO ONE (11:30)
--- NOTE | 2019-12-09 13:21 | RAD ---
EXAM: Chest, single view. HISTORY: Congestive heart failure. COMPARISON: 12/07/2019 FINDINGS: A frontal view of the chest is obtained. There has been no change in a moderate right pleural effusion with right middle and lower lobe infiltrate. There is a small left pleural effusion. There are coarse likely chronic interstitial changes. There is cardiomegaly. There is a cardiac pacemaker unchanged in position. IMPRESSION: 1. Stable moderate right pleural effusion with middle and lower lobe infiltrate or compressive atelectasis. 2. Small left pleural effusion. 3. Cardiomegaly. 4. Suspected chronic coarse and interstitial changes. Electronically signed by: Meredith Izaguirre MD (12/09/2019 1:18 PM) [place] [id number]
--- NOTE | 2019-12-09 13:31 | PDOC ---
MARTI DURAND APRN 12/09/19 1331: CARDIO Progress Notes Date and Time Date of Service 12/09/19 Time of Evaluation 1245 Subjective Subjective: No Chest Pain, No Palpitations, No Dizziness, Other (SOA better. Abdominal pain persists ) Vitals Vitals Vital Signs Date Time Temp Pulse Resp B/P (MAP) Pulse Ox O2 Delivery O2 Flow Rate FiO2 12/09/19 10:35 Nasal Cannula 3.0 12/09/19 10:15 98.3 102 18 159/86 (110) 97 98.3 Weight Weight [ ] Input and Output Intake and Output Intake and Output 12/09/19 07:00 Intake Total 770 ml Output Total 1950 ml Balance -1180 ml Intake Oral 770 ml Output Urine Total 1950 ml Physical Exam HEENT: Neck Supple W Full Motion Chest: Symmetric LUNGS: Other (diminished ) Heart: S1S2, RRR (paced ) Abdomen: Other (diffuse tenderness. ) Extremities: Other (trace RLE edema ) Neurology: alert, oriented, follow commands Assessment Assessment 1. Abdominal pain, constipation. CT with large amt of stool in the colon 2. Dyspnea with a/c CHF, pleural effusion 3. Acute on chronic diastolic CHF; LVEF 55-60% 4. CHB; s/p PPM 5. 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-V/POST GRADUATE INTERN-D. Device check 10/13/19 with normal function. Thoracic Impedance trend stable. Recent echo with normalized LVEF at 55-60%. 6. PAD; had ANIMAL HANDLER of common iliac artery. Revacularization was attempted 08/20, but was unsuccessful. Underwent recent iliac stenting with left to right femoral-femoral bypass as well as femoral endarterectomies. Stable 7. Hypertension; labile 8. COPD with chronic O2 9. Hypokalemia 10. UTI; as per PCP Recommendations Repeat labs Mild diuresis Continue secondary prevention measures Follow up with primary draft roller picker, Dr. Phillips upon DC APARNA PARRA MD 12/09/19 1715: CARDIO Progress Notes Assessment Assessment Patient seen and examined. Agree with DOLL DRESSER's assessment and plan. Acute on chronic diastolic heart failure better compensated Recent 2-D echo showed normal LV function and recent device check showed normal function PAD status clinically stable Follow-up with primary Director Of Capital Giving upon discharge MARTI DURAND APRN Dec 09, 2019 13:31 APARNA PARRA MD Dec 09, 2019 17:15
--- NOTE | 2019-12-09 13:55 | NUR ---
SS following for discharge planning. SS reviewed pt chart. Pt is from [facility], ; fax [phone]. PT/OT ordered. SS contacted [facility] and verified that pt is a skilled rehabilitation resident from there facility and is able to return when medically stable for discharge. SS will continue to follow for discharge planning.
[2019-12-09 14:10] VITALS: BP 156/60
[2019-12-09 14:42] LABS: CALCIUM 8.9 mg/dL (8.5-10.1); CREATININE 0.7 mg/dL (0.6-1.0); GFR 79.9; MAGNESIUM 1.6 mg/dL (1.8-2.4); POTASSIUM 3.1 mmol/L (3.5-5.1)
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
[2019-12-09 19:16] VITALS: BP 158/79
[2019-12-09] MEDS: PSYLLIUM HUSK (SUGAR FREE) 1 PKT PACKET PO SCH (19:31)
[2019-12-09] MEDS: ATORVASTATIN CALCIUM 20 MG TABLET PO SCH (19:31)
[2019-12-09] MEDS: POLYETHYLENE GLYCOL 3350 17 GM PACKET. PO SCH (19:32)
[2019-12-09 23:02] VITALS: BP 167/68
[2019-12-10] MEDS: HYDROcodone/APAP 5/325MG 1 TAB TABLET PO PRN (03:29)
[2019-12-10 03:48] VITALS: BP 168/80
[2019-12-10 05:13] LABS: BASO % 1 % (0-3); EOS % 1 % (0-3); HEMATOCRIT 31.4 % (36.0-47.0); HEMOGLOBIN 10.6 g/dL (12.0-15.5); LYMPH # 0.8 x10^3/uL (1.0-4.8); LYMPH % 14 % (24-48); MEAN CORPUSCULAR HEMOGLOBIN 28 pg (25-35); MEAN CORPUSCULAR HGB CONC 34 g/dL (31-37); MEAN CORPUSCULAR VOLUME 82 fL (79-100); MONO # 0.6 x10^3/uL (0.0-1.1); MONO % 10 % (0-9); NEUT # 4.2 x10^3/uL (1.8-7.7); NEUT % 75 % (31-73); PLATELET COUNT 244 x10^3/uL (140-400); RED BLOOD COUNT 3.81 x10^6/uL (3.50-5.40); RED CELL DISTRIBUTION WIDTH 14.5 % (11.5-14.5); WHITE BLOOD COUNT 5.6 x10^3/uL (4.0-11.0)
[2019-12-10 07:00] VITALS: BP 177/89
[2019-12-10] MEDS ORDERED: POTASSIUM CHLORIDE 20 MEQ TABLET.ER. PO ONE (08:00)
[2019-12-10] MEDS ORDERED: MAGNESIUM SULFATE 2GM 50 ML IV ONE (08:00)
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
[2019-12-10 09:38] LABS: CALCIUM 9.1 mg/dL (8.5-10.1); CREATININE 0.5 mg/dL (0.6-1.0); GFR 117.8; MAGNESIUM 1.6 mg/dL (1.8-2.4); POTASSIUM 3.1 mmol/L (3.5-5.1)
--- NOTE | 2019-12-10 09:53 | PDOC2 ---
GI CONSULT Reason For Consult: Fecal impaction POA, anemia HPI: HPI: 84 y/o female admitted a couple days ago w/ abd pain and shortness of breath. Imaging showed moderate right pleural effusion and large amount of stool. D/w nurse - has been diuresed and had a large stool on Saturday, then a smear yesterday, has a "protrusion" in right lower abdomen, and doesn't have a good appetite (is on Marinol). Has been anxious, many different complaints but then isn't satisfied with suggestions. History is challenging - she says she doesn't want to take sleeping pills or pa in pills because she can't think straight, says she tried to refuse them but was given them anyway, asks "are you trying to kill me?" and also says she thinks we're trying to keep her alive until her son gets here - he's an erisa attorney and "will set all you straight." Not sure when abdominal pain began. It comes and goes, feels "tight," and is located in middle and lower abdomen. Not related to eating or stooling. Can't tell me about her appetite, unclear when she started Marinol. Denies reflux/heartburn but sometimes belches when she eats. No dysphagia. No vomiting. Unclear if typically has constipation - has been at for rehab but usually lives at a [facility] - she brings this up several times. Had a CT in 2018 for h/o fecal impaction. Denies bleeding. Unclear if previous EGD. Had a colonoscopy at some point, not sure when or where, says it was normal. Has had abdominal surgeries - "one led to another" - can't tell me what kind of surgeries. Anemic since 2016, this admission iron 34, TIBC 308, iron saturation 11. PMH: PMH: per chart - CAD, CHF, HTN, PAD, COPD, osteoporosis AICD, hernia repair, hysterectomy, iliac stent, right femoral bypass, femoral endarterectomy FH: Family History: No pertinent hx Social History: Smoke: Quit ALCOHOL: none Drugs: None ROS: GEN: Denies fevers, chills, sweats HEENT: Denies blurred vision, sore throat CV: +CP RESP: +SOA GI: Per HPI : Denies hematuria, dysuria ENDO: Denies weight changes NEURO: +confusion MSK: +pain SKIN: Denies jaundice, pruritus Vitals: Vitals: Vital Signs Date Time Temp Pulse Resp B/P (MAP) Pulse Ox O2 Delivery O2 Flow Rate FiO2 12/10/19 07:00 97.9 97 18 177/89 (118) 99 Nasal Cannula 2.0 97.9 Labs: Labs: Laboratory Tests Test 12/09/19 14:10 12/10/19 05:00 Sodium Level 135 mmol/L (136-145) 135 mmol/L (136-145) Potassium Level 3.1 mmol/L (3.5-5.1) 3.1 mmol/L (3.5-5.1) Chloride Level 93 mmol/L (98-107) 94 mmol/L (98-107) Carbon Dioxide Level 38 mmol/L (21-32) 38 mmol/L (21-32) Anion Gap 4 (6-14) 3 (6-14) Blood Urea Nitrogen 11 mg/dL (7-20) 13 mg/dL (7-20) Creatinine 0.7 mg/dL (0.6-1.0) 0.5 mg/dL (0.6-1.0) Estimated GFR (Cockcroft-Gault) 79.9 117.8 Glucose Level 158 mg/dL (70-99) 80 mg/dL (70-99) Calcium Level 8.9 mg/dL (8.5-10.1) 9.1 mg/dL (8.5-10.1) Magnesium Level 1.6 mg/dL (1.8-2.4) 1.6 mg/dL (1.8-2.4) Iron Level 34 ug/dL (50-170) Total Iron Binding Capacity 308 ug/dL (250-450) Iron Saturation 11 % (15-34) White Blood Count 5.6 x10^3/uL (4.0-11.0) Red Blood Count 3.81 x10^6/uL (3.50-5.40) Hemoglobin 10.6 g/dL (12.0-15.5) Hematocrit 31.4 % (36.0-47.0) Mean Corpuscular Volume 82 fL (79-100) Mean Corpuscular Hemoglobin 28 pg (25-35) Mean Corpuscular Hemoglobin Concent 34 g/dL (31-37) Red Cell Distribution Width 14.5 % (11.5-14.5) Platelet Count 244 x10^3/uL (140-400) Neutrophils (%) (Auto) 75 % (31-73) Lymphocytes (%) (Auto) 14 % (24-48) Monocytes (%) (Auto) 10 % (0-9) Eosinophils (%) (Auto) 1 % (0-3) Basophils (%) (Auto) 1 % (0-3) Neutrophils # (Auto) 4.2 x10^3/uL (1.8-7.7) Lymphocytes # (Auto) 0.8 x10^3/uL (1.0-4.8) Monocytes # (Auto) 0.6 x10^3/uL (0.0-1.1) Eosinophils # (Auto) 0.0 x10^3/uL (0.0-0.7) Basophils # (Auto) 0.0 x10^3/uL (0.0-0.2) Allergies: Coded Allergies: prednisone (Verified Adverse Reaction, Intermediate, pt states she experienced hallucinations with Prednisone, 08/11/16) pt states she experienced hallucinations with Prednisone Medications: Current Medications Medications (Trade) Dose Ordered Sig/Reginald Route PRN Reason Start Time Stop Time Status Last Admin Dose Admin Furosemide (Lasix) 40 mg 1X ONCE IVP 12/09/19 11:30 12/09/19 11:31 DC 12/09/19 12:48 Potassium Chloride (Klor-Con) 40 meq 1X ONCE PO 12/09/19 11:30 12/09/19 11:31 DC 12/09/19 12:46 Imaging: Imaging: CXR 12/07 IMPRESSION: 1. Stable moderate right pleural effusion with right lower lobe atelectasis or infiltrate. 2. Suspected emphysema with chronic diffuse increased interstitial opacity. CT A/P 12/07 Impression: Large quantity of stool throughout the colon. No acute inflammatory process within the abdomen or pelvis. Moderate-sized right pleural effusion and adjacent atelectasis. Small left pleural effusion. March also involvement of the abdominal aorta and its branches. CXR 12/09 IMPRESSION: 1. Stable moderate right pleural effusion with middle and lower lobe infiltrate or compressive atelectasis. 2. Small left pleural effusion. 3. Cardiomegaly. 4. Suspected chronic coarse and interstitial changes. PE: GEN: NAD HEENT: Atraumatic, PERRL LUNGS: CTAB anteriorly, on NC - difficult exam as she said I really hurt her when I placed by stethoscope below her AICD - "you're not supposed to touch that!" HEART: mildly tachycardic ABD: NABS, soft, some distention, tender to palpation and placement of stethoscope - asked me to stop EXTREMITY: No edema SKIN: midline scar, horizontal scar across suprapubic region w/ ropelike feeling NEURO/PSYCH: A & O 3, anxious, forgetful A/P: A/P: Abd pain, SOA CHF, h/o COPD, right pleural effusion Constipation Chronic anemia - some iron deficiency, on ASA H/o anorexia on Marinol CRC screen - reportedly normal in the past -- Many options for constipation ordered - ?needs to stool more - ?Relistor Tender everywhere I touched - taking Lortab ?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 Starkey. DINESH JARRETT Dec 10, 2019 09:53
[2019-12-10] MEDS: LACTULOSE 20 GM/30 ML SOLUTION. PO SCH ×2 (10:20→21:52)
[2019-12-10] MEDS: busPIRone 5 MG TABLET. PO SCH ×2 (10:20→21:51)
[2019-12-10] MEDS: ASPIRIN CHEWABLE 81 MG TABLET. PO SCH (10:21)
[2019-12-10] MEDS: LOSARTAN POTASSIUM 50 MG TABLET. PO SCH (10:21)
[2019-12-10] MEDS: DRONABINOL 2.5 MG CAPSULE. PO SCH ×2 (10:21→21:52)
[2019-12-10 11:00] VITALS: BP 189/89
[2019-12-10] MEDS ORDERED: METHYLNALTREXONE 12 MG/0.6 ML VIAL. SQ ONE (11:00)
--- NOTE | 2019-12-10 12:00 | PDOC ---
PULMONARY PROGRESS NOTES Subjective feels better with diuresis today Vitals Vital Signs Date Time Temp Pulse Resp B/P (MAP) Pulse Ox O2 Delivery O2 Flow Rate FiO2 12/10/19 11:00 98.5 96 18 189/89 (122) 91 Nasal Cannula 2.0 98.5 General: Alert, No acute distress Lungs: Other (decrease right base) Cardiovascular: S1 Abdomen: Soft Neuro Exam: Alert Extremities: Other (1+edema) Skin: Warm Labs Laboratory Tests Test 12/08/19 12:15 12/09/19 14:10 12/10/19 05:00 Magnesium Level 1.8 mg/dL (1.8-2.4) 1.6 mg/dL (1.8-2.4) 1.6 mg/dL (1.8-2.4) Sodium Level 135 mmol/L (136-145) 135 mmol/L (136-145) Potassium Level 3.1 mmol/L (3.5-5.1) 3.1 mmol/L (3.5-5.1) Chloride Level 93 mmol/L (98-107) 94 mmol/L (98-107) Carbon Dioxide Level 38 mmol/L (21-32) 38 mmol/L (21-32) Anion Gap 4 (6-14) 3 (6-14) Blood Urea Nitrogen 11 mg/dL (7-20) 13 mg/dL (7-20) Creatinine 0.7 mg/dL (0.6-1.0) 0.5 mg/dL (0.6-1.0) Estimated GFR (Cockcroft-Gault) 79.9 117.8 Glucose Level 158 mg/dL (70-99) 80 mg/dL (70-99) Calcium Level 8.9 mg/dL (8.5-10.1) 9.1 mg/dL (8.5-10.1) Iron Level 34 ug/dL (50-170) Total Iron Binding Capacity 308 ug/dL (250-450) Iron Saturation 11 % (15-34) White Blood Count 5.6 x10^3/uL (4.0-11.0) Red Blood Count 3.81 x10^6/uL (3.50-5.40) Hemoglobin 10.6 g/dL (12.0-15.5) Hematocrit 31.4 % (36.0-47.0) Mean Corpuscular Volume 82 fL (79-100) Mean Corpuscular Hemoglobin 28 pg (25-35) Mean Corpuscular Hemoglobin Concent 34 g/dL (31-37) Red Cell Distribution Width 14.5 % (11.5-14.5) Platelet Count 244 x10^3/uL (140-400) Neutrophils (%) (Auto) 75 % (31-73) Lymphocytes (%) (Auto) 14 % (24-48) Monocytes (%) (Auto) 10 % (0-9) Eosinophils (%) (Auto) 1 % (0-3) Basophils (%) (Auto) 1 % (0-3) Neutrophils # (Auto) 4.2 x10^3/uL (1.8-7.7) Lymphocytes # (Auto) 0.8 x10^3/uL (1.0-4.8) Monocytes # (Auto) 0.6 x10^3/uL (0.0-1.1) Eosinophils # (Auto) 0.0 x10^3/uL (0.0-0.7) Basophils # (Auto) 0.0 x10^3/uL (0.0-0.2) Laboratory Tests Test 12/09/19 14:10 12/10/19 05:00 Sodium Level 135 mmol/L (136-145) 135 mmol/L (136-145) Potassium Level 3.1 mmol/L (3.5-5.1) 3.1 mmol/L (3.5-5.1) Chloride Level 93 mmol/L (98-107) 94 mmol/L (98-107) Carbon Dioxide Level 38 mmol/L (21-32) 38 mmol/L (21-32) Anion Gap 4 (6-14) 3 (6-14) Blood Urea Nitrogen 11 mg/dL (7-20) 13 mg/dL (7-20) Creatinine 0.7 mg/dL (0.6-1.0) 0.5 mg/dL (0.6-1.0) Estimated GFR (Cockcroft-Gault) 79.9 117.8 Glucose Level 158 mg/dL (70-99) 80 mg/dL (70-99) Calcium Level 8.9 mg/dL (8.5-10.1) 9.1 mg/dL (8.5-10.1) Magnesium Level 1.6 mg/dL (1.8-2.4) 1.6 mg/dL (1.8-2.4) Iron Level 34 ug/dL (50-170) Total Iron Binding Capacity 308 ug/dL (250-450) Iron Saturation 11 % (15-34) White Blood Count 5.6 x10^3/uL (4.0-11.0) Red Blood Count 3.81 x10^6/uL (3.50-5.40) Hemoglobin 10.6 g/dL (12.0-15.5) Hematocrit 31.4 % (36.0-47.0) Mean Corpuscular Volume 82 fL (79-100) Mean Corpuscular Hemoglobin 28 pg (25-35) Mean Corpuscular Hemoglobin Concent 34 g/dL (31-37) Red Cell Distribution Width 14.5 % (11.5-14.5) Platelet Count 244 x10^3/uL (140-400) Neutrophils (%) (Auto) 75 % (31-73) Lymphocytes (%) (Auto) 14 % (24-48) Monocytes (%) (Auto) 10 % (0-9) Eosinophils (%) (Auto) 1 % (0-3) Basophils (%) (Auto) 1 % (0-3) Neutrophils # (Auto) 4.2 x10^3/uL (1.8-7.7) Lymphocytes # (Auto) 0.8 x10^3/uL (1.0-4.8) Monocytes # (Auto) 0.6 x10^3/uL (0.0-1.1) Eosinophils # (Auto) 0.0 x10^3/uL (0.0-0.7) Basophils # (Auto) 0.0 x10^3/uL (0.0-0.2) Medications Active Scripts Medications Dose Route/Sig Max Daily Dose Days Date Category Dose Instructions Marinol (Dronabinol) 2.5 Mg Capsule 2.5 Mg PO BID 30 11/16/19 Rx Procalamine Iv Solution (Aa 3%/Electrolyte-Tpn Soln/Gly) 1,000 Ml Iv.soln 1,000 Ml IV DAILY 3 11/16/19 Rx Phenazopyridine Hcl 200 Mg Tablet 200 Mg PO PRN TID PRN 10 11/16/19 Rx Lidocaine PATCH (Lidocaine) 1 Each Adh..patch 1 Patch TD DAILY 11/16/19 Rx Buspirone Hcl 5 Mg Tablet 5 Mg PO BID 11/16/19 Rx Restoril (Temazepam) 7.5 Mg Capsule 7.5 Mg PO PRN QHS PRN 11/16/19 Rx Hydrocodone-Apap 5-325 (Hydrocodone Bit/Acetaminophen) 1 Tab Tablet 1 Tab PO PRN Q4HRS PRN 11/16/19 Rx Ultram (Tramadol Hcl) 50 Mg Tablet 25 Mg PO Q6H PRN 11/16/19 Rx Lactulose 20 Gm/30 Ml Solution 20 Gm PO BID 5 09/16/18 Rx Diltiazem 24HR Cd (Diltiazem Hcl) 120 Mg Cap.er.24h 120 Mg PO DAILY 08/11/16 Rx SIG: ONE TAB DAILY Cyclobenzaprine Hcl 10 Mg Tablet 10 Mg PO BID 08/10/16 Reported Proair Hfa Inhaler (Albuterol Sulfate) 8.5 Gm Hfa.aer.ad 1 Puff INH PRN Q6HRS PRN 08/10/16 Reported Spiriva (Tiotropium [place]) 18 Mcg Cap.w.dev 2 Inh IH DAILY 08/10/16 Reported Advair 250-50 Diskus (Fluticasone/Salmeterol) 1 Each Disk.w.dev 1 Inh IH BID 08/10/16 Reported Vitamin C (Ascorbic Acid) 1,000 Mg Tablet 1,000 Mg PO DAILY 08/10/16 Reported Fish Oil Collins-3 EC 1,200 mg (Collins-3/Dha/Epa/Fish Oil) 1 Each Capsule.dr 1 Each PO BID 08/10/16 Reported Calcium 600 + Vit D 200 Tablet (Calcium Carbonate/Vitamin D3) 1 Each Tablet 1 Each PO BID 08/10/16 Reported Aspirin 81 Mg Tab.chew 81 Mg PO DAILY 08/10/16 Reported D3-2000 (Cholecalciferol (Vitamin D3)) 2,000 Unit Capsule 2,000 Unit PO DAILY 08/10/16 Reported Diovan (Valsartan) 160 Mg Tablet 160 Mg PO BID 08/10/16 Reported Impression . 1. Dyspnea with acute on chronic hypoxic respiratory failure secondary to acute on chronic diastolic heart failure. 2. Abnormal chest x-ray consistent with congestive heart failure. She has interstitial prominence along with right pleural effusion. 3. History of underlying chronic obstructive pulmonary disease. 4. Moderate protein-calorie malnutrition. 5. No clinical symptoms suggesting pneumonia. 6. Abnormal CT abdomen consistent with a large quantity of stool throughout the colon. Plan . 1. From a pulmonary standpoint, continue with present oxygen 2 liters. 2. diuresis. 3. Replace potassium as needed 4. Follow Cardiology recommendation. 5. Cardiology rec 6. echocardiogram.reviewed 7. repeat chest x-ray in am and assess need for thoracentesis MASHA GILES MD Dec 10, 2019 12:00
--- NOTE | 2019-12-10 12:59 | PDOC ---
CARDIO Progress Notes Date and Time Date of Service 12/10/19 Time of Evaluation 1300 Subjective Subjective: No Chest Pain, No Palpitations, No Dizziness, Other (SOA better. Abdominal pain persists ) Vitals Vitals Vital Signs Date Time Temp Pulse Resp B/P (MAP) Pulse Ox O2 Delivery O2 Flow Rate FiO2 12/10/19 11:00 98.5 96 18 189/89 (122) 91 Nasal Cannula 2.0 98.5 Weight Weight [ ] Input and Output Intake and Output Intake and Output 12/10/19 07:00 Intake Total 1150 ml Output Total 2650 ml Balance -1500 ml Intake Oral 1150 ml Output Urine Total 2650 ml Laboratory Labs Laboratory Tests Test 12/09/19 14:10 12/10/19 05:00 Sodium Level 135 mmol/L (136-145) 135 mmol/L (136-145) Potassium Level 3.1 mmol/L (3.5-5.1) 3.1 mmol/L (3.5-5.1) Chloride Level 93 mmol/L (98-107) 94 mmol/L (98-107) Carbon Dioxide Level 38 mmol/L (21-32) 38 mmol/L (21-32) Anion Gap 4 (6-14) 3 (6-14) Blood Urea Nitrogen 11 mg/dL (7-20) 13 mg/dL (7-20) Creatinine 0.7 mg/dL (0.6-1.0) 0.5 mg/dL (0.6-1.0) Estimated GFR (Cockcroft-Gault) 79.9 117.8 Glucose Level 158 mg/dL (70-99) 80 mg/dL (70-99) Calcium Level 8.9 mg/dL (8.5-10.1) 9.1 mg/dL (8.5-10.1) Magnesium Level 1.6 mg/dL (1.8-2.4) 1.6 mg/dL (1.8-2.4) Iron Level 34 ug/dL (50-170) Total Iron Binding Capacity 308 ug/dL (250-450) Iron Saturation 11 % (15-34) White Blood Count 5.6 x10^3/uL (4.0-11.0) Red Blood Count 3.81 x10^6/uL (3.50-5.40) Hemoglobin 10.6 g/dL (12.0-15.5) Hematocrit 31.4 % (36.0-47.0) Mean Corpuscular Volume 82 fL (79-100) Mean Corpuscular Hemoglobin 28 pg (25-35) Mean Corpuscular Hemoglobin Concent 34 g/dL (31-37) Red Cell Distribution Width 14.5 % (11.5-14.5) Platelet Count 244 x10^3/uL (140-400) Neutrophils (%) (Auto) 75 % (31-73) Lymphocytes (%) (Auto) 14 % (24-48) Monocytes (%) (Auto) 10 % (0-9) Eosinophils (%) (Auto) 1 % (0-3) Basophils (%) (Auto) 1 % (0-3) Neutrophils # (Auto) 4.2 x10^3/uL (1.8-7.7) Lymphocytes # (Auto) 0.8 x10^3/uL (1.0-4.8) Monocytes # (Auto) 0.6 x10^3/uL (0.0-1.1) Eosinophils # (Auto) 0.0 x10^3/uL (0.0-0.7) Basophils # (Auto) 0.0 x10^3/uL (0.0-0.2) Physical Exam HEENT: Neck Supple W Full Motion Chest: Symmetric LUNGS: Other (diminished ) Heart: S1S2, RRR (paced ) Abdomen: Other (diffuse tenderness. ) Extremities: Other (trace RLE edema ) Neurology: alert, oriented, follow commands Assessment Assessment 1. Abdominal pain, constipation. CT with large amt of stool in the colon 2. Dyspnea with a/c CHF, pleural effusion 3. Acute on chronic diastolic CHF; LVEF 55-60%. better compensated following diuresis 4. CHB; s/p PPM 5. 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 Device check 10/13/19 with normal function. Thoracic Impedance trend stable. Recent echo with normalized LVEF at 55-60%. 6. 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 Revacularization was attempted 08/20, but was unsuccessful. Underwent recent iliac stenting with left to right femoral-femoral bypass as well as femoral endarterectomies. Stable 7. Hypertension; labile 8. COPD with chronic O2 9. Hypokalemia, hypomagnesemia; replaced 10. UTI; as per PCP Recommendations Start oral Lasix Continue secondary prevention measures Follow up with primary vp of digital marketing, Dr. Phillips upon MARTI GREGORY APRN Dec 10, 2019 12:59
[2019-12-10] MEDS: FUROSEMIDE 40 MG TABLET. PO SCH (14:59)
[2019-12-10 15:00] VITALS: BP 138/65
--- NOTE | 2019-12-10 16:11 | NUR ---
Patient consistently complains of abdominal pain and trouble breathing with any activity such as turning and repositioning head of bed. When this RN attempted to give CHG bath and do Nozin swab, she got very anxious and tearful stating " I can't breath repeatedly" while purse lip breathing. I explained the purpose of both the CHG and Nozin however patient stated she did not want it because she is in too much pain and is nervous about not being able to breath.
[2019-12-10 19:18] VITALS: BP 129/66
[2019-12-10] MEDS: PSYLLIUM HUSK (SUGAR FREE) 1 PKT PACKET PO SCH ×2 (21:00→21:52)
[2019-12-10] MEDS: ATORVASTATIN CALCIUM 20 MG TABLET PO SCH (21:52)
[2019-12-10] MEDS: POLYETHYLENE GLYCOL 3350 17 GM PACKET. PO SCH (21:52)
[2019-12-10 22:03] VITALS: BP 174/82
[2019-12-11 02:39] VITALS: BP 162/77
[2019-12-11 07:00] VITALS: BP 177/102
[2019-12-11] MEDS ORDERED: POTASSIUM CHLORIDE 20 MEQ TABLET.ER. PO ONE (07:30)
--- NOTE | 2019-12-11 08:11 | RAD ---
Examination: PORTABLE CHEST 1V History: CHF Comparison/Correlation: 12/09/2023 chest x-ray exam Findings: Portable upright frontal view chest was obtained. 4-lead left-sided pacemaker is present. Cardiomegaly present. Pulmonary interstitial thickening of the lung myers episodes of prior exam. Moderate-sized right basilar pleural effusion and adjacent consolidation noted. A small left pleural effusion noted. Surgical clips present at the right upper abdomen. Impression: Right pleural effusion and adjacent atelectasis/infiltrate again seen. No significant overall change considering differences in patient positioning. Electronically signed by: Pacheco Sears MD (12/11/2019 8:08 AM) [facility]
[2019-12-11] MEDS: LACTULOSE 20 GM/30 ML SOLUTION. PO SCH (08:19)
[2019-12-11] MEDS: DRONABINOL 2.5 MG CAPSULE. PO SCH (08:20)
[2019-12-11] MEDS: busPIRone 5 MG TABLET. PO SCH (08:20)
[2019-12-11] MEDS: ASPIRIN CHEWABLE 81 MG TABLET. PO SCH (08:20)
[2019-12-11] MEDS: LOSARTAN POTASSIUM 50 MG TABLET. PO SCH (08:21)
[2019-12-11] MEDS: FUROSEMIDE 40 MG TABLET. PO SCH (08:22)
--- NOTE | 2019-12-11 09:34 | PDOC ---
PROGRESS NOTES Chief Complaint Chief Complaint IMPRESSION Intractable abdominal pain - with severe Constipation, will CONT bowel regimen Shortness of breath - with pleural effusions, treated for acute CHF. Will consult cardiology, she wants care coordinated through her [facility] spare hand carding S table moderate right pleural effusion with middle and lower lobe infiltrate or compressive atelectasis. F/U CXR, MAY NEED THORACENTESIS Anemia - worse than in 2019 CHF (congestive heart failure) - acute diastolic, Severe protein calorie malnutrition - Hypoalbuminemia Hypokalemia - replace Hyponatremia - replace, nutrition to see Chronic respiratory failure - will wean O2 as tolerated Compression deformity in L2, compression deformity in T12, status post kyphoplasty. Chronic obstructive pulmonary disease - will consult pulmonology for further recs Status post pacemaker placement - stable Hypertension - cont meds Compression deformity at L2 has progressed when compared to the radiographs on 08/01/2016. on bone scan, 11/10, Increased activity is seen involving T7 and T12 and L2 consistent with recent OSTEOPOROTIC compression fractures. compression deformities in the lower thoracic spine with 5 mm of retropulsion at the superior endplate of T12. gait instability pvd bi-common femoral graft noted. SEVERE PROTEIN-CALORIC MALNUTRITION UTI - large quantity of stool throughout the colon. Marked calcific involvement throughout the aorta and iliac arteries noted. Femoral to femoral bypass graft is present. Fluid collection about the right common femoral vein which may represent a seroma or old hematoma is present measuring up to 2.7 cm diameter. Significant calcification involvement involving the proximal celiac and superior mesenteric arteries 12/09 gi consult // fe panel, she does not want an extensive work-up d/w son in room 12/10 STILL IN PAIN, ABD, MG REPLACED 10, WEAK, BP LABILE, K REPLACED BMP AT NOON PENDING, ADD TOPROL XL 12.5 MG PO DAILY History of Present Illness History of Present Illness 12/10/19 Patient seen and examined still short of breath Chart reviewed Discussed with RN MG LOW, REPLACED Vitals Vitals Vital Signs Date Time Temp Pulse Resp B/P (MAP) Pulse Ox O2 Delivery O2 Flow Rate FiO2 12/11/19 08:21 95 177/102 12/11/19 08:00 Nasal Cannula 3.0 12/11/19 07:00 98.6 16 97 98.6 Physical Exam General: Alert (oriented to person and place), Cooperative, No acute distress, mild distress Heart: Regular rate, Normal S1, Normal S2 Lungs: Other (decrease right base) Abdomen: Normal bowel sounds, Soft, Other (diffuse tenderness ) Extremities: No cyanosis, Other (trace LLE and 1+ RLE edema ) Skin: No significant lesion, Other Labs LABS LEFT VENTRICLE The left ventricle is normal size. There is normal left ventricular wall thickness. The left ventricular systolic function is normal and the ejection fraction is within normal range. The Ejection Fraction is 55-60%. Apical motion consistent with pacemaker activation. Transmitral Doppler flow pattern is Grade I-abnormal relaxation pattern. RIGHT VENTRICLE The right ventricle is normal size. The right ventricular systolic function is normal. There are device leads in the right ventricle and atrium. ATRIA The left atrium size is normal. The right atrium size is normal. A pacemaker is seen in the right atrium consistent with history. The interatrial septum is intact with no evidence for an atrial septal defect or patent foramen ovale as noted on 2-D or Doppler imaging. AORTIC VALVE The aortic valve is calcified but appears to open well by Doppler interrogation. Doppler and Color Flow revealed no significant aortic regurgitation. There is no significant aortic valvular stenosis. MITRAL VALVE Anterior mitral valve is severely thickened and there is severe anterior mitral annular calcification. There is no evidence of mitral valve prolapse. There is no mitral valve stenosis. Doppler and Color-flow revealed mild mitral regurgitation. TRICUSPID VALVE The tricuspid valve leaflets are thickened and calcified, but open well. There is severe tricuspid annular calcification. Doppler and Color Flow revealed mild tricuspid regurgitation. The PA pressure was estimated at 45 mmHg. There is no tricuspid valve stenosis. PULMONIC VALVE The pulmonic valve is not well visualized. Doppler and Color Flow revealed no pulmonic valvular regurgitation. There is no pulmonic valvular stenosis. GREAT VESSELS The aortic root is normal in size. The ascending aorta is not well seen. The IVC is normal in size and collapses >50% with inspiration. PERICARDIAL EFFUSION There is no evidence of significant pericardial effusion. Critical Notification Critical Value: No <Conclusion> The left ventricle is normal size. The left ventricular systolic function is normal and the ejection fraction is within normal range. The Ejection Fraction is 55-60%. Apical motion consistent with pacemaker activation. There are device leads in the right ventricle and atrium. The aortic valve is calcified but appears to open well by Doppler interrogation. Doppler and Color Flow revealed no significant aortic regurgitation. There is no significant aortic valvular stenosis. Anterior mitral valve is severely thickened and there is severe anterior mitral annular calcification. Doppler and Color-flow revealed mild mitral regurgitation. Doppler and Color Flow revealed mild tricuspid regurgitation. The PA pressure was estimated at 45 mmHg. Signed by : Thomas Miller MD Electronically Approved : 11/16/2019 13:54:04 Assessment and Plan Assessmemt and Plan Problems Medical Problems: (1) Abdominal pain Status: Acute (2) Anemia Status: Acute (3) CHF (congestive heart failure) Status: Acute (4) Constipation Status: Acute (5) Hypoalbuminemia Status: Acute (6) Hypokalemia Status: Acute (7) Hyponatremia Status: Acute (8) Shortness of breath Status: Acute (9) UTI (urinary tract infection) due to urinary indwelling [place] catheter Status: Acute Comment Review of Relevant I have reviewed the following items nahomi (where applicable) has been applied. Labs Laboratory Tests Test 12/09/19 14:10 12/10/19 05:00 Sodium Level 135 mmol/L (136-145) 135 mmol/L (136-145) Potassium Level 3.1 mmol/L (3.5-5.1) 3.1 mmol/L (3.5-5.1) Chloride Level 93 mmol/L (98-107) 94 mmol/L (98-107) Carbon Dioxide Level 38 mmol/L (21-32) 38 mmol/L (21-32) Anion Gap 4 (6-14) 3 (6-14) Blood Urea Nitrogen 11 mg/dL (7-20) 13 mg/dL (7-20) Creatinine 0.7 mg/dL (0.6-1.0) 0.5 mg/dL (0.6-1.0) Estimated GFR (Cockcroft-Gault) 79.9 117.8 Glucose Level 158 mg/dL (70-99) 80 mg/dL (70-99) Calcium Level 8.9 mg/dL (8.5-10.1) 9.1 mg/dL (8.5-10.1) Magnesium Level 1.6 mg/dL (1.8-2.4) 1.6 mg/dL (1.8-2.4) Iron Level 34 ug/dL (50-170) Total Iron Binding Capacity 308 ug/dL (250-450) Iron Saturation 11 % (15-34) White Blood Count 5.6 x10^3/uL (4.0-11.0) Red Blood Count 3.81 x10^6/uL (3.50-5.40) Hemoglobin 10.6 g/dL (12.0-15.5) Hematocrit 31.4 % (36.0-47.0) Mean Corpuscular Volume 82 fL (79-100) Mean Corpuscular Hemoglobin 28 pg (25-35) Mean Corpuscular Hemoglobin Concent 34 g/dL (31-37) Red Cell Distribution Width 14.5 % (11.5-14.5) Platelet Count 244 x10^3/uL (140-400) Neutrophils (%) (Auto) 75 % (31-73) Lymphocytes (%) (Auto) 14 % (24-48) Monocytes (%) (Auto) 10 % (0-9) Eosinophils (%) (Auto) 1 % (0-3) Basophils (%) (Auto) 1 % (0-3) Neutrophils # (Auto) 4.2 x10^3/uL (1.8-7.7) Lymphocytes # (Auto) 0.8 x10^3/uL (1.0-4.8) Monocytes # (Auto) 0.6 x10^3/uL (0.0-1.1) Eosinophils # (Auto) 0.0 x10^3/uL (0.0-0.7) Basophils # (Auto) 0.0 x10^3/uL (0.0-0.2) Microbiology 12/07/19 Urine Culture - Final, Complete 12/07/19 Urine Culture Result 1 (MARIJA) - Final, Complete Medications Current Medications Iohexol (Omnipaque 240 Mg/ml) 30 ml 1X ONCE PO Last administered on 12/07/19at 15:40; Start 12/07/19 at 15:00; Stop 12/07/19 at 15:01; Status DC Iohexol (Omnipaque 300 Mg/ml) 75 ml 1X ONCE IV Last administered on 12/07/19at 15:40; Start 12/07/19 at 15:00; Stop 12/07/19 at 15:01; Status DC Info (CONTRAST GIVEN -- Rx MONITORING) 1 each PRN DAILY PRN MC SEE COMMENTS; Start 12/07/19 at 15:00; Stop 12/09/19 at 14:59; Status DC Ceftriaxone Sodium (Rocephin) 1 gm 1X ONCE IVP Last administered on 12/07/19at 19:13; Start 12/07/19 at 17:30; Stop 12/07/19 at 17:31; Status DC Furosemide (Lasix) 20 mg 1X ONCE IVP Last administered on 12/07/19at 19:13; Start 12/07/19 at 17:45; Stop 12/07/19 at 17:46; Status DC Albuterol Sulfate (Ventolin Neb Soln) 2.5 mg PRN Q6HRS PRN INH SHORTNESS OF BREATH; Start 12/07/19 at 21:45 Aspirin (Children'S Aspirin) 81 mg DAILY PO Last administered on 12/11/19at 08:20; Start 12/08/19 at 09:00 Buspirone HCl (Buspar) 5 mg BID PO Last administered on 12/11/19at 08:20; Start 12/07/19 at 22:00 Diltiazem HCl (Cardizem 24hr Cd) 120 mg DAILY PO Last administered on 12/11/19at 08:21; Start 12/08/19 at 09:00 Dronabinol (Marinol) 2.5 mg BID PO Last administered on 12/11/19at 08:20; Start 12/08/19 at 09:00 Acetaminophen/ Hydrocodone Bitart (Lortab 5/325) 1 tab PRN Q4HRS PRN PO MODERATE PAIN 4-6 Last administered on 12/10/19at 03:29; Start 12/07/19 at 21:45 Lactulose (Lactulose) 20 gm BID PO Last administered on 12/11/19at 08:19; Start 12/08/19 at 09:00 Tramadol HCl (Ultram) 25 mg PRN Q6HRS PRN PO MILD PAIN 1-3 Last administered on 12/08/19at 20:40; Start 12/07/19 at 21:45 Budesonide (Pulmicort) 0.5 mg RTBID NEB ; Start 12/08/19 at 08:00; Stop 12/09/19 at 16:35; Status DC Albuterol/ Ipratropium (Duoneb) 3 ml RTQID NEB ; Start 12/08/19 at 08:00; Stop 12/09/19 at 16:35; Status DC Losartan Potassium (Cozaar) 100 mg DAILY PO Last administered on 12/11/19at 08:21; Start 12/08/19 at 09:00 Bisacodyl (Dulcolax Supp) 10 mg 1X ONCE CO ; Start 12/07/19 at 22:00; Stop 12/07/19 at 22:01; Status DC Bisacodyl (Dulcolax Supp) 10 mg PRN DAILY PRN CO CONSTIPATION Last administered on 12/08/19at 15:25; Start 12/07/19 at 21:45 Polyethylene Glycol (miraLAX PACKET) 17 gm QHS PO Last administered on 12/10/19at 21:52; Start 12/07/19 at 22:00 Psyllium Hydrophilic Mucilloid (Metamucil Fiber Packet) 1 pkt QHS PO Last administered on 12/09/19at 19:31; Start 12/07/19 at 22:00 Ceftriaxone Sodium (Rocephin) 1 gm Q24H IVP Last administered on 12/08/19at 09:54; Start 12/08/19 at 09:30; Stop 12/09/19 at 09:31; Status DC Pharmacy Consult (C.diff Med Screen By Rx) 1 each 1X ONCE MC ; Start 12/08/19 at 03:30; Stop 12/08/19 at 03:31; Status DC Furosemide (Lasix) 20 mg 1X ONCE IVP Last administered on 12/08/19at 15:24; Start 12/08/19 at 14:00; Stop 12/08/19 at 14:01; Status DC Potassium Chloride (Klor-Con) 40 meq 1X ONCE PO Last administered on 12/08/19at 15:24; Start 12/08/19 at 14:00; Stop 12/08/19 at 14:01; Status DC Atorvastatin Calcium (Lipitor) 20 mg QHS PO Last administered on 12/10/19at 21:52; Start 12/08/19 at 21:00 Furosemide (Lasix) 20 mg 1X ONCE IVP Last administered on 12/09/19at 09:30; Start 12/09/19 at 08:00; Stop 12/09/19 at 08:01; Status DC Furosemide (Lasix) 20 mg 1X ONCE IVP Last administered on 12/09/19at 05:21; Start 12/09/19 at 06:00; Stop 12/09/19 at 06:01; Status DC Furosemide (Lasix) 40 mg 1X ONCE IVP Last administered on 12/09/19at 12:48; Start 12/09/19 at 11:30; Stop 12/09/19 at 11:31; Status DC Potassium Chloride (Klor-Con) 40 meq 1X ONCE PO Last administered on 12/09/19at 12:46; Start 12/09/19 at 11:30; Stop 12/09/19 at 11:31; Status DC Magnesium Sulfate 50 ml @ 25 mls/hr 1X ONCE IV Last administered on 12/10/19at 10:32; Start 12/10/19 at 08:00; Stop 12/10/19 at 09:59; Status DC Potassium Chloride (Klor-Con) 40 meq 1X ONCE PO Last administered on 12/10/19at 10:21; Start 12/10/19 at 08:00; Stop 12/10/19 at 08:01; Status DC Methylnaltrexone [place] (Relistor) 12 mg 1X ONCE SQ Last administered on 12/10/19at 14:59; Start 12/10/19 at 11:00; Stop 12/10/19 at 11:01; Status DC Furosemide (Lasix) 40 mg DAILY PO Last administered on 12/11/19at 08:22; Start 12/10/19 at 13:00 Potassium Chloride (Klor-Con) 40 meq 1X ONCE PO Last administered on 12/11/19at 08:21; Start 12/11/19 at 07:30; Stop 12/11/19 at 07:31; Status DC Active Scripts Active Marinol (Dronabinol) 2.5 Mg Capsule 2.5 Mg PO BID 30 Days Procalamine Iv Solution (Aa 3%/Electrolyte-Tpn Soln/Gly) 1,000 Ml Iv.soln 1,000 Ml IV DAILY 3 Days Phenazopyridine Hcl 200 Mg Tablet 200 Mg PO PRN TID PRN 10 Days Lidocaine PATCH (Lidocaine) 1 Each Adh..patch 1 Patch TD DAILY Buspirone Hcl 5 Mg Tablet 5 Mg PO BID Restoril (Temazepam) 7.5 Mg Capsule 7.5 Mg PO PRN QHS PRN Hydrocodone-Apap 5-325 (Hydrocodone Bit/Acetaminophen) 1 Tab Tablet 1 Tab PO PRN Q4HRS PRN Ultram (Tramadol Hcl) 50 Mg Tablet 25 Mg PO Q6H PRN Lactulose 20 Gm/30 Ml Solution 20 Gm PO BID 5 Days Diltiazem 24HR Cd (Diltiazem Hcl) 120 Mg Cap.er.24h 120 Mg PO DAILY SIG: ONE TAB DAILY Reported Cyclobenzaprine Hcl 10 Mg Tablet 10 Mg PO BID Proair Hfa Inhaler (Albuterol Sulfate) 8.5 Gm Hfa.aer.ad 1 Puff INH PRN Q6HRS PRN Spiriva (Tiotropium [place]) 18 Mcg Cap.w.dev 2 Inh IH DAILY Advair 250-50 Diskus (Fluticasone/Salmeterol) 1 Each Disk.w.dev 1 Inh IH BID Vitamin C (Ascorbic Acid) 1,000 Mg Tablet 1,000 Mg PO DAILY Fish Oil [place]-3 EC 1,200 mg ([place]-3/Dha/Epa/Fish Oil) 1 Each Capsule.dr 1 Each PO BID Calcium 600 + Vit D 200 Tablet (Calcium Carbonate/Vitamin D3) 1 Each Tablet 1 Each PO BID Aspirin 81 Mg Tab.chew 81 Mg PO DAILY D3-2000 (Cholecalciferol (Vitamin D3)) 2,000 Unit Capsule 2,000 Unit PO DAILY Diovan (Valsartan) 160 Mg Tablet 160 Mg PO BID Vitals/I & O Vital Sign - Last 24 Hours 12/10/19 12/10/19 12/10/19 12/10/19 10:21 10:21 11:00 15:00 Temp 98.5 98.1 98.5 98.1 Pulse 97 97 96 94 Resp 18 18 B/P (MAP) 177/89 177/89 189/89 (122) 138/65 (89) Pulse Ox 91 97 O2 Delivery Nasal Cannula Nasal Cannula O2 Flow Rate 2.0 2.0 12/10/19 12/10/19 12/10/19 12/11/19 19:18 20:20 22:03 02:39 Temp 98.2 98.0 98.3 98.2 98.0 98.3 Pulse 92 99 84 Resp 18 20 20 B/P (MAP) 129/66 (87) 174/82 (112) 162/77 (105) Pulse Ox 98 96 100 O2 Delivery Nasal Cannula Nasal Cannula Nasal Cannula Nasal Cannula O2 Flow Rate 2.0 2.0 2.0 2.0 12/11/19 12/11/19 12/11/19 12/11/19 07:00 08:00 08:21 08:21 Temp 98.6 98.6 Pulse 95 95 95 Resp 16 B/P (MAP) 177/102 (127) 177/102 177/102 Pulse Ox 97 O2 Delivery Nasal Cannula Nasal Cannula O2 Flow Rate 3.0 3.0 Intake and Output 12/10/19 12/10/19 12/11/19 15:00 23:00 07:00 Intake Total 440 ml 340 ml 120 ml Output Total 300 ml Balance 440 ml 340 ml -180 ml Nutrition Consultation Dietary Evaluation: Recommendations by RD: Dietary education by RD, Increase Calorie Intake, Protein supplementation Comments: Continue w/cardiac diet as ordered, honor food preferences, and provide snacks as requested REC Ensure ice cream milkshakes w/dinner pending pt tolerance REC Stepan BID (orange) REC MVI - wound healing Expected Outcomes/Goals: PO intake to meet >75% est needs Malnutrition Findings: Body Fat Depletion (Non Severe: Mild Depletion Weight Status: Appropriate LUCIO PLUNKETT MD Dec 11, 2019 09:34
[2019-12-11] MEDS ORDERED: POTASSIUM CHLORIDE 20 MEQ TABLET.ER. PO SCH (10:00)
[2019-12-11 11:00] VITALS: BP 112/57
[2019-12-11] MEDS ORDERED: METOPROLOL SUCC 24HR ER 25 MG TAB.ER.24H. PO SCH (11:00)
--- NOTE | 2019-12-11 11:27 | PDOC ---
Subjective: Subjective: Abdomen is sore. Ate toast and marley. No stool. Objective: Objective: D/w nurse - no stool yesterday or yet today, declined Metamucil, maybe back to PP tomorrow if electrolytes ok. Vital Signs: Vital Signs Date Time Temp Pulse Resp B/P (MAP) Pulse Ox O2 Delivery O2 Flow Rate FiO2 12/11/19 08:21 95 177/102 12/11/19 08:00 Nasal Cannula 3.0 12/11/19 07:00 98.6 16 97 98.6 Imaging: CXR 12/11 Impression: Right pleural effusion and adjacent atelectasis/infiltrate again seen. No significant overall change considering differences in patient positioning. PE: GEN: NAD- was asleep LUNGS: clear anteriorly HEART: RRR ABD: NABS, tender to fingers brushing against skin NEURO/PSYCH: A & O 3 A/P: Abd pain, constipation CHF, right pleural effusion Chronic anemia -- Try BID Miralax. Hemodynamically unstable?: No Is patient in severe pain?: No Is NPO status required?: No DINESH JARRETT Dec 11, 2019 11:27
[2019-12-11] MEDS ORDERED: POLYETHYLENE GLYCOL 3350 17 GM PACKET. PO SCH (12:00)
--- NOTE | 2019-12-11 12:09 | PDOC ---
PULMONARY PROGRESS NOTES Subjective feels better with diuresis today Vitals Vital Signs Date Time Temp Pulse Resp B/P (MAP) Pulse Ox O2 Delivery O2 Flow Rate FiO2 12/11/19 08:21 95 177/102 12/11/19 08:00 Nasal Cannula 3.0 12/11/19 07:00 98.6 16 97 98.6 General: Alert, No acute distress Lungs: Other (decrease right base) Cardiovascular: S1 Abdomen: Soft Neuro Exam: Alert Extremities: Other (1+edema) Skin: Warm Labs Laboratory Tests Test 12/09/19 14:10 12/10/19 05:00 Sodium Level 135 mmol/L (136-145) 135 mmol/L (136-145) Potassium Level 3.1 mmol/L (3.5-5.1) 3.1 mmol/L (3.5-5.1) Chloride Level 93 mmol/L (98-107) 94 mmol/L (98-107) Carbon Dioxide Level 38 mmol/L (21-32) 38 mmol/L (21-32) Anion Gap 4 (6-14) 3 (6-14) Blood Urea Nitrogen 11 mg/dL (7-20) 13 mg/dL (7-20) Creatinine 0.7 mg/dL (0.6-1.0) 0.5 mg/dL (0.6-1.0) Estimated GFR (Cockcroft-Gault) 79.9 117.8 Glucose Level 158 mg/dL (70-99) 80 mg/dL (70-99) Calcium Level 8.9 mg/dL (8.5-10.1) 9.1 mg/dL (8.5-10.1) Magnesium Level 1.6 mg/dL (1.8-2.4) 1.6 mg/dL (1.8-2.4) Iron Level 34 ug/dL (50-170) Total Iron Binding Capacity 308 ug/dL (250-450) Iron Saturation 11 % (15-34) White Blood Count 5.6 x10^3/uL (4.0-11.0) Red Blood Count 3.81 x10^6/uL (3.50-5.40) Hemoglobin 10.6 g/dL (12.0-15.5) Hematocrit 31.4 % (36.0-47.0) Mean Corpuscular Volume 82 fL (79-100) Mean Corpuscular Hemoglobin 28 pg (25-35) Mean Corpuscular Hemoglobin Concent 34 g/dL (31-37) Red Cell Distribution Width 14.5 % (11.5-14.5) Platelet Count 244 x10^3/uL (140-400) Neutrophils (%) (Auto) 75 % (31-73) Lymphocytes (%) (Auto) 14 % (24-48) Monocytes (%) (Auto) 10 % (0-9) Eosinophils (%) (Auto) 1 % (0-3) Basophils (%) (Auto) 1 % (0-3) Neutrophils # (Auto) 4.2 x10^3/uL (1.8-7.7) Lymphocytes # (Auto) 0.8 x10^3/uL (1.0-4.8) Monocytes # (Auto) 0.6 x10^3/uL (0.0-1.1) Eosinophils # (Auto) 0.0 x10^3/uL (0.0-0.7) Basophils # (Auto) 0.0 x10^3/uL (0.0-0.2) Medications Active Scripts Medications Dose Route/Sig Max Daily Dose Days Date Category Dose Instructions Marinol (Dronabinol) 2.5 Mg Capsule 2.5 Mg PO BID 30 11/16/19 Rx Procalamine Iv Solution (Aa 3%/Electrolyte-Tpn Soln/Gly) 1,000 Ml Iv.soln 1,000 Ml IV DAILY 3 11/16/19 Rx Phenazopyridine Hcl 200 Mg Tablet 200 Mg PO PRN TID PRN 10 11/16/19 Rx Lidocaine PATCH (Lidocaine) 1 Each Adh..patch 1 Patch TD DAILY 11/16/19 Rx Buspirone Hcl 5 Mg Tablet 5 Mg PO BID 11/16/19 Rx Restoril (Temazepam) 7.5 Mg Capsule 7.5 Mg PO PRN QHS PRN 11/16/19 Rx Hydrocodone-Apap 5-325 (Hydrocodone Bit/Acetaminophen) 1 Tab Tablet 1 Tab PO PRN Q4HRS PRN 11/16/19 Rx Ultram (Tramadol Hcl) 50 Mg Tablet 25 Mg PO Q6H PRN 11/16/19 Rx Lactulose 20 Gm/30 Ml Solution 20 Gm PO BID 5 09/16/18 Rx Diltiazem 24HR Cd (Diltiazem Hcl) 120 Mg Cap.er.24h 120 Mg PO DAILY 08/11/16 Rx SIG: ONE TAB DAILY Cyclobenzaprine Hcl 10 Mg Tablet 10 Mg PO BID 08/10/16 Reported Proair Hfa Inhaler (Albuterol Sulfate) 8.5 Gm Hfa.aer.ad 1 Puff INH PRN Q6HRS PRN 08/10/16 Reported Spiriva (Tiotropium [place]) 18 Mcg Cap.w.dev 2 Inh IH DAILY 08/10/16 Reported Advair 250-50 Diskus (Fluticasone/Salmeterol) 1 Each Disk.w.dev 1 Inh IH BID 08/10/16 Reported Vitamin C (Ascorbic Acid) 1,000 Mg Tablet 1,000 Mg PO DAILY 08/10/16 Reported Fish Oil [place]-3 EC 1,200 mg ([place]-3/Dha/Epa/Fish Oil) 1 Each Capsule.dr 1 Each PO BID 08/10/16 Reported Calcium 600 + Vit D 200 Tablet (Calcium Carbonate/Vitamin D3) 1 Each Tablet 1 Each PO BID 08/10/16 Reported Aspirin 81 Mg Tab.chew 81 Mg PO DAILY 08/10/16 Reported D3-2000 (Cholecalciferol (Vitamin D3)) 2,000 Unit Capsule 2,000 Unit PO DAILY 08/10/16 Reported Diovan (Valsartan) 160 Mg Tablet 160 Mg PO BID 08/10/16 Reported Impression . 1. Dyspnea with acute on chronic hypoxic respiratory failure secondary to acute on chronic diastolic heart failure. 2. Abnormal chest x-ray consistent with congestive heart failure. She has interstitial prominence along with right pleural effusion. 3. History of underlying chronic obstructive pulmonary disease. 4. Moderate protein-calorie malnutrition. 5. No clinical symptoms suggesting pneumonia. 6. Abnormal CT abdomen consistent with a large quantity of stool throughout the colon. Plan . 1. From a pulmonary standpoint, continue with present oxygen 2 liters. 2. diuresis. 3. Replace potassium as needed 4. Follow Cardiology recommendation. 5. Cardiology rec 6. echocardiogram.reviewed 7. repeat chest x-ray 12/11 with improved CHF, small RLL effusion. No need for thoracentesis dc plans per cardiology MASHA GILES MD Dec 11, 2019 12:09
[2019-12-11 12:15] LABS: CALCIUM 9.6 mg/dL (8.5-10.1); CREATININE 1.5 mg/dL (0.6-1.0); GFR 33.2; POTASSIUM 4.8 mmol/L (3.5-5.1)
[2019-12-11 12:58] VITALS: BP 112/57
--- NOTE | 2019-12-11 13:45 | PDOC3 ---
Discharge Summary Date of Admission: Dec 07, 2019 Date of Discharge: Dec 11, 2019 Follow-Up: 1-2 days Admitting Diagnosis comment: discharge dx ========= Intractable abdominal pain - with severe Constipation, will CONT bowel regimen refused extensive work-up Shortness of breath - with pleural effusions, treated for acute CHF. 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 F/U CXR, MAY NEED THORACENTESIS Anemia - worse than in 2019 CHF (congestive heart failure) - acute diastolic, Severe protein calorie malnutrition - Hypoalbuminemia Hypokalemia - replace Hyponatremia - replace, nutrition to see Chronic respiratory failure - will wean O2 as tolerated Compression deformity in L2, compression deformity in T12, status post kyphoplasty. Chronic obstructive pulmonary disease - will consult pulmonology for further recs Status post pacemaker placement - stable Hypertension - cont meds Compression deformity at L2 has progressed when compared to the radiographs on 08/01/2016. on bone scan, 11/10, Increased activity is seen involving T7 and T12 and L2 consistent with recent OSTEOPOROTIC compression fractures. compression deformities in the lower thoracic spine with 5 mm of retropulsion at the superior endplate of T12. gait instability pvd bi-common femoral graft noted. SEVERE PROTEIN-CALORIC MALNUTRITION UTI - large quantity of stool throughout the colon. Marked calcific involvement throughout the aorta and iliac arteries noted. Femoral to femoral bypass graft is present. Fluid collection about the right common femoral vein which may represent a seroma or old hematoma is present measuring up to 2.7 cm diameter. Significant calcification involvement involving the proximal celiac and superior mesenteric arteries 12/09 gi consult // fe panel, she does not want an extensive work-up d/w son in room 12/10 STILL IN PAIN, ABD, MG REPLACED 10, , BP LABILE, K REPLACED BMP AT NOON PENDING, ADD TOPROL XL 12.5 MG PO DAILY d/c planning 33 min History of Present Illness History of Present Illness 12/11/19 Patient seen and examined less short of breath Chart reviewed Discussed with THEODORE FRENCH LOW, REPLACED cardiology and gi ok with d/c today snf Vitals Vitals Vital Signs Date Time Temp Pulse Resp B/P (MAP) Pulse Ox O2 Delivery O2 Flow Rate FiO2 12/11/19 08:21 95 177/102 12/11/19 08:00 Nasal Cannula 3.0 12/11/19 07:00 98.6 16 97 98.6 Physical Exam General: Alert (oriented to person and place), Cooperative, No acute distress, mild distress Heart: Regular rate, Normal S1, Normal S2 Lungs: Other (decrease right base) Abdomen: Normal bowel sounds, Soft, Other (diffuse tenderness ) Extremities: No cyanosis, Other (trace LLE and 1+ RLE edema ) Skin: No significant lesion, Other FINAL DIAGNOSIS Problems Medical Problems: (1) Abdominal pain Status: Acute (2) Anemia Status: Acute (3) CHF (congestive heart failure) Status: Acute (4) Constipation Status: Acute (5) Hypoalbuminemia Status: Acute (6) Hypokalemia Status: Acute (7) Hyponatremia Status: Acute (8) Shortness of breath Status: Acute (9) UTI (urinary tract infection) due to urinary indwelling [place] catheter Status: Acute Brief Hospital Course Ms. Soria is a 84 old [sex] who presented with [fecal impaction ] CONDITION AT DISCHARGE: Improved Discharge Medications Current Medications Iohexol (Omnipaque 240 Mg/ml) 30 ml 1X ONCE PO Last administered on 12/07/19at 15:40; Start 12/07/19 at 15:00; Stop 12/07/19 at 15:01; Status DC Iohexol (Omnipaque 300 Mg/ml) 75 ml 1X ONCE IV Last administered on 12/07/19at 15:40; Start 12/07/19 at 15:00; Stop 12/07/19 at 15:01; Status DC Info (CONTRAST GIVEN -- Rx MONITORING) 1 each PRN DAILY PRN MC SEE COMMENTS; Start 12/07/19 at 15:00; Stop 12/09/19 at 14:59; Status DC Ceftriaxone Sodium (Rocephin) 1 gm 1X ONCE IVP Last administered on 12/07/19at 19:13; Start 12/07/19 at 17:30; Stop 12/07/19 at 17:31; Status DC Furosemide (Lasix) 20 mg 1X ONCE IVP Last administered on 12/07/19at 19:13; Start 12/07/19 at 17:45; Stop 12/07/19 at 17:46; Status DC Albuterol Sulfate (Ventolin Neb Soln) 2.5 mg PRN Q6HRS PRN INH SHORTNESS OF BREATH; Start 12/07/19 at 21:45 Aspirin (Children'S Aspirin) 81 mg DAILY PO Last administered on 12/11/19at 08:20; Start 12/08/19 at 09:00 Buspirone HCl (Buspar) 5 mg BID PO Last administered on 12/11/19at 08:20; Start 12/07/19 at 22:00 Diltiazem HCl (Cardizem 24hr Cd) 120 mg DAILY PO Last administered on 12/11/19at 08:21; Start 12/08/19 at 09:00 Dronabinol (Marinol) 2.5 mg BID PO Last administered on 12/11/19at 08:20; Start 12/08/19 at 09:00 Acetaminophen/ Hydrocodone Bitart (Lortab 5/325) 1 tab PRN Q4HRS PRN PO MODER ATE PAIN 4-6 Last administered on 12/10/19at 03:29; Start 12/07/19 at 21:45 Lactulose (Lactulose) 20 gm BID PO Last administered on 12/11/19at 08:19; Start 12/08/19 at 09:00 Tramadol HCl (Ultram) 25 mg PRN Q6HRS PRN PO MILD PAIN 1-3 Last administered on 12/08/19at 20:40; Start 12/07/19 at 21:45 Budesonide (Pulmicort) 0.5 mg RTBID NEB ; Start 12/08/19 at 08:00; Stop 12/09/19 at 16:35; Status DC Albuterol/ Ipratropium (Duoneb) 3 ml RTQID NEB ; Start 12/08/19 at 08:00; Stop 12/09/19 at 16:35; Status DC Losartan Potassium (Cozaar) 100 mg DAILY PO Last administered on 12/11/19at 08:21; Start 12/08/19 at 09:00 Bisacodyl (Dulcolax Supp) 10 mg 1X ONCE [place] ; Start 12/07/19 at 22:00; Stop 12/07/19 at 22:01; Status DC Bisacodyl (Dulcolax Supp) 10 mg PRN DAILY PRN [place] CONSTIPATION Last administered on 12/08/19at 15:25; Start 12/07/19 at 21:45 Polyethylene Glycol (miraLAX PACKET) 17 gm QHS PO Last administered on 12/10/19at 21:52; Start 12/07/19 at 22:00; Stop 12/11/19 at 11:27; Status DC Psyllium Hydrophilic Mucilloid (Metamucil Fiber Packet) 1 pkt QHS PO Last administered on 12/09/19at 19:31; Start 12/07/19 at 22:00 Ceftriaxone Sodium (Rocephin) 1 gm Q24H IVP Last administered on 12/08/19at 09:54; Start 12/08/19 at 09:30; Stop 12/09/19 at 09:31; Status DC Pharmacy Consult (C.diff Med Screen By Rx) 1 each 1X ONCE MC ; Start 12/08/19 at 03:30; Stop 12/08/19 at 03:31; Status DC Furosemide (Lasix) 20 mg 1X ONCE IVP Last administered on 12/08/19at 15:24; Start 12/08/19 at 14:00; Stop 12/08/19 at 14:01; Status DC Potassium Chloride (Klor-Con) 40 meq 1X ONCE PO Last administered on 12/08/19at 15:24; Start 12/08/19 at 14:00; Stop 12/08/19 at 14:01; Status DC Atorvastatin Calcium (Lipitor) 20 mg QHS PO Last administered on 12/10/19at 21:52; Start 12/08/19 at 21:00 Furosemide (Lasix) 20 mg 1X ONCE IVP Last administered on 12/09/19at 09:30; Start 12/09/19 at 08:00; Stop 12/09/19 at 08:01; Status DC Furosemide (Lasix) 20 mg 1X ONCE IVP Last administered on 12/09/19at 05:21; Start 12/09/19 at 06:00; Stop 12/09/19 at 06:01; Status DC Furosemide (Lasix) 40 mg 1X ONCE IVP Last administered on 12/09/19at 12:48; Start 12/09/19 at 11:30; Stop 12/09/19 at 11:31; Status DC Potassium Chloride (Klor-Con) 40 meq 1X ONCE PO Last administered on 12/09/19at 12:46; Start 12/09/19 at 11:30; Stop 12/09/19 at 11:31; Status DC Magnesium Sulfate 50 ml @ 25 mls/hr 1X ONCE IV Last administered on 12/10/19at 10:32; Start 12/10/19 at 08:00; Stop 12/10/19 at 09:59; Status DC Potassium Chloride (Klor-Con) 40 meq 1X ONCE PO Last administered on 12/10/19at 10:21; Start 12/10/19 at 08:00; Stop 12/10/19 at 08:01; Status DC Methylnaltrexone [place] (Relistor) 12 mg 1X ONCE SQ Last administered on 12/10/19at 14:59; Start 12/10/19 at 11:00; Stop 12/10/19 at 11:01; Status DC Furosemide (Lasix) 40 mg DAILY PO Last administered on 12/11/19at 08:22; Start 12/10/19 at 13:00 Potassium Chloride (Klor-Con) 40 meq 1X ONCE PO Last administered on 12/11/19at 08:21; Start 12/11/19 at 07:30; Stop 12/11/19 at 07:31; Status DC Potassium Chloride (Klor-Con) 20 meq DAILYWBKFT PO ; Start 12/11/19 at 10:00 Metoprolol Succinate (Toprol Xl) 12.5 mg DAILY PO Last administered on 12/11/19at 12:58; Start 12/11/19 at 11:00 Polyethylene Glycol (miraLAX PACKET) 17 gm BID PO Last administered on 12/11/19at 12:58; Start 12/11/19 at 12:00 Active Scripts Active Marinol (Dronabinol) 2.5 Mg Capsule 2.5 Mg PO BID 30 Days Procalamine Iv Solution (Aa 3%/Electrolyte-Tpn Soln/Gly) 1,000 Ml Iv.soln 1,000 Ml IV DAILY 3 Days Phenazopyridine Hcl 200 Mg Tablet 200 Mg PO PRN TID PRN 10 Days Lidocaine PATCH (Lidocaine) 1 Each Adh..patch 1 Patch TD DAILY Buspirone Hcl 5 Mg Tablet 5 Mg PO BID Restoril (Temazepam) 7.5 Mg Capsule 7.5 Mg PO PRN QHS PRN Hydrocodone-Apap 5-325 (Hydrocodone Bit/Acetaminophen) 1 Tab Tablet 1 Tab PO PRN Q4HRS PRN Ultram (Tramadol Hcl) 50 Mg Tablet 25 Mg PO Q6H PRN Lactulose 20 Gm/30 Ml Solution 20 Gm PO BID 5 Days Diltiazem 24HR Cd (Diltiazem Hcl) 120 Mg Cap.er.24h 120 Mg PO DAILY SIG: ONE TAB DAILY Reported Cyclobenzaprine Hcl 10 Mg Tablet 10 Mg PO BID Proair Hfa Inhaler (Albuterol Sulfate) 8.5 Gm Hfa.aer.ad 1 Puff INH PRN Q6HRS PRN Spiriva (Tiotropium [place]) 18 Mcg Cap.w.dev 2 Inh IH DAILY Advair 250-50 Diskus (Fluticasone/Salmeterol) 1 Each Disk.w.dev 1 Inh IH BID Vitamin C (Ascorbic Acid) 1,000 Mg Tablet 1,000 Mg PO DAILY Fish Oil [place]-3 EC 1,200 mg ([place]-3/Dha/Epa/Fish Oil) 1 Each Capsule.dr 1 Each PO BID Calcium 600 + Vit D 200 Tablet (Calcium Carbonate/Vitamin D3) 1 Each Tablet 1 Each PO BID Aspirin 81 Mg Tab.chew 81 Mg PO DAILY D3-2000 (Cholecalciferol (Vitamin D3)) 2,000 Unit Capsule 2,000 Unit PO DAILY Diovan (Valsartan) 160 Mg Tablet 160 Mg PO BID Vital Signs Vital Signs Date Time Temp Pulse Resp B/P (MAP) Pulse Ox O2 Delivery O2 Flow Rate FiO2 12/11/19 12:58 88 112/57 12/11/19 11:00 98.0 16 92 Nasal Cannula 3.0 98.0 Labs Laboratory Tests Test 12/09/19 14:10 12/10/19 05:00 12/11/19 11:50 Sodium Level 135 mmol/L (136-145) 135 mmol/L (136-145) 136 mmol/L (136-145) Potassium Level 3.1 mmol/L (3.5-5.1) 3.1 mmol/L (3.5-5.1) 4.8 mmol/L (3.5-5.1) Chloride Level 93 mmol/L (98-107) 94 mmol/L (98-107) 97 mmol/L (98-107) Carbon Dioxide Level 38 mmol/L (21-32) 38 mmol/L (21-32) 37 mmol/L (21-32) Anion Gap 4 (6-14) 3 (6-14) 2 (6-14) Blood Urea Nitrogen 11 mg/dL (7-20) 13 mg/dL (7-20) 23 mg/dL (7-20) Creatinine 0.7 mg/dL (0.6-1.0) 0.5 mg/dL (0.6-1.0) 1.5 mg/dL (0.6-1.0) Estimated GFR (Cockcroft-Gault) 79.9 117.8 33.2 Glucose Level 158 mg/dL (70-99) 80 mg/dL (70-99) 143 mg/dL (70-99) Calcium Level 8.9 mg/dL (8.5-10.1) 9.1 mg/dL (8.5-10.1) 9.6 mg/dL (8.5-10.1) Magnesium Level 1.6 mg/dL (1.8-2.4) 1.6 mg/dL (1.8-2.4) 2.6 mg/dL (1.8-2.4) Iron Level 34 ug/dL (50-170) Total Iron Binding Capacity 308 ug/dL (250-450) Iron Saturation 11 % (15-34) White Blood Count 5.6 x10^3/uL (4.0-11.0) Red Blood Count 3.81 x10^6/uL (3.50-5.40) Hemoglobin 10.6 g/dL (12.0-15.5) Hematocrit 31.4 % (36.0-47.0) Mean Corpuscular Volume 82 fL (79-100) Mean Corpuscular Hemoglobin 28 pg (25-35) Mean Corpuscular Hemoglobin Concent 34 g/dL (31-37) Red Cell Distribution Width 14.5 % (11.5-14.5) Platelet Count 244 x10^3/uL (140-400) Neutrophils (%) (Auto) 75 % (31-73) Lymphocytes (%) (Auto) 14 % (24-48) Monocytes (%) (Auto) 10 % (0-9) Eosinophils (%) (Auto) 1 % (0-3) Basophils (%) (Auto) 1 % (0-3) Neutrophils # (Auto) 4.2 x10^3/uL (1.8-7.7) Lymphocytes # (Auto) 0.8 x10^3/uL (1.0-4.8) Monocytes # (Auto) 0.6 x10^3/uL (0.0-1.1) Eosinophils # (Auto) 0.0 x10^3/uL (0.0-0.7) Basophils # (Auto) 0.0 x10^3/uL (0.0-0.2) Laboratory Tests Test 12/11/19 11:50 Sodium Level 136 mmol/L (136-145) Potassium Level 4.8 mmol/L (3.5-5.1) Chloride Level 97 mmol/L (98-107) Carbon Dioxide Level 37 mmol/L (21-32) Anion Gap 2 (6-14) Blood Urea Nitrogen 23 mg/dL (7-20) Creatinine 1.5 mg/dL (0.6-1.0) Estimated GFR (Cockcroft-Gault) 33.2 Glucose Level 143 mg/dL (70-99) Calcium Level 9.6 mg/dL (8.5-10.1) Magnesium Level 2.6 mg/dL (1.8-2.4) Allergies Allergies Coded Allergies Type Severity Reaction Last Updated Verified prednisone Adverse Reaction Intermediate pt states she experienced hallucinations with Prednisone 08/11/16 Yes Disposition/Orders: Other (d/c to SNF BED) Hemodynamically unstable?: No Is patient in severe pain?: No Is NPO status required?: No LUCIO PLUNKETT MD Dec 11, 2019 13:45
[2019-12-11] MEDS ORDERED: POTA20TA4 PO (13:49)
[2019-12-11] MEDS ORDERED: FURO40TA4 PO (13:49)
[2019-12-11] MEDS ORDERED: ATOR20TA58 PO (13:49)
[2019-12-11] MEDS ORDERED: METO-239 PO (13:49)
[2019-12-11] MEDS ORDERED: BISA10SU4 PR (13:49)
[2019-12-11] MEDS ORDERED: POLY17PO28 PO (13:49)
--- NOTE | 2019-12-11 13:51 | SNU/HH DC ---
DISCHARGE ORDERS DISCHARGE INFORMATION: FINAL DIAGNOSIS Problems Medical Problems: (1) Abdominal pain Status: Acute (2) Anemia Status: Acute (3) CHF (congestive heart failure) Status: Acute (4) Constipation Status: Acute (5) Hypoalbuminemia Status: Acute (6) Hypokalemia Status: Acute (7) Hyponatremia Status: Acute (8) Shortness of breath Status: Acute (9) UTI (urinary tract infection) due to urinary indwelling [place] catheter Status: Acute CONDITION ON DISCHARGE: Stable CODE STATUS: Code Status: Full SNF: SNF STAY <30 DAYS: Yes HOSPICE: HOSPICE: No HOSPICE EVAL & TREAT: No POST DISCHARGE ORDERS: ACTIVITY ORDERS: Activity as tolerated, Other, see below WEIGHT BEARING STATUS: As tolerated BATHING ORDERS: No Tub Bath until see Dr. PÉREZ AFTER DISCHARGE: Cardiac WOUND/INCISION CARE: May get incision wet, Other, see below CHECKS AFTER DISCHARGE: CHECKS AFTER DISCHARGE: Check blood press - daily, Check your Temp as needed TREATMENT/EQUIPMENT ORDERS: ADAPTIVE EQUIPMENT NEEDED: Cane Physical Therapy For: Evalulation/Treatment Occupational Therapy For: Evaluation/Treatment DISCHARGE MEDICATIONS: Home Meds Active Scripts Polyethylene Glycol 3350 (POLYETHYLENE GLYCOL 3350) 17 Gm Powd.pack, 17 GM PO BID for PREVENT CONSTIPATION for 30 Days, #60 PKT Prov:LUCIO PLUNKETT MD 12/11/19 Bisacodyl (BISACODYL) 10 Mg Supp.rect, 10 MG [place] PRN DAILY PRN for CONSTIPATION for 30 Days, #30 SUPP.RECT Prov:LUCIO PLUNKETT MD 12/11/19 Furosemide (FUROSEMIDE) 40 Mg Tablet, 40 MG PO DAILY for HEART FAILURE for 30 Days, #30 TAB Prov:LUCIO PLUNKETT MD 12/11/19 Potassium Chloride (KLOR-CON M20) 20 Meq Tab.er.prt, 20 MEQ PO DAILYWBKFT for SUPPLEMENT for 14 Days, #14 TAB.SR Prov:LUCIO PLUNKETT MD 12/11/19 Metoprolol Succinate (METOPROLOL SUCCINATE ( XL )) 25 Mg Tab.er.24h, 12.5 MG PO DAILY for HYPERTENSION for 30 Days, #15 TAB.SR Prov:LUCIO PLUNKETT MD 12/11/19 Atorvastatin Calcium (ATORVASTATIN CALCIUM) 20 Mg Tablet, 20 MG PO QHS for CHOLESTEROL for 30 Days, #30 TAB Prov:LUCIO PLUNKETT MD 12/11/19 Dronabinol (MARINOL) 2.5 Mg Capsule, 2.5 MG PO BID for poor PO for 30 Days, #60 CAP Prov:MARY MARTINI MD 11/16/19 Lidocaine (Lidocaine PATCH ) 1 Each Adh..patch, 1 PATCH TD DAILY for msk pain, #14 PATCH Prov:MARY MARTINI MD 11/16/19 Buspirone Hcl (BUSPIRONE HCL) 5 Mg Tablet, 5 MG PO BID for pain, #60 TAB Prov:MARY MARTINI MD 11/16/19 Tramadol Hcl (ULTRAM) 50 Mg Tablet, 25 MG PO Q6H PRN for PAIN, #30 TAB 0 Refills Prov:MARY MARTINI MD 11/16/19 Lactulose (LACTULOSE) 20 Gm/30 Ml Solution, 20 GM PO BID for 5 Days, MISC Prov:JOSE CABRAL [employer]IZ[employer] EFFECTIVENESS DIRECTOR 09/16/18 Diltiazem Hcl (DILTIAZEM 24HR CD) 120 Mg Cap.er.24h, 120 MG PO DAILY, #30 TAB 0 Refills SIG: ONE TAB DAILY Prov:SOHAN BACON [employer]GANIZATIONAL EFFECTIVENESS DIRECTOR 08/11/16 Reported Medications Albuterol Sulfate (PROAIR HFA INHALER) 8.5 Gm Hfa.aer.ad, 1 PUFF INH PRN Q6HRS PRN for SHORTNESS OF BREATH, INHALER 0 Refills 08/10/16 Tiotropium [place] (SPIRIVA) 18 Mcg Cap.w.dev, 2 INH IH DAILY, #1 INH 0 Refills 08/10/16 Fluticasone/Salmeterol (ADVAIR 250-50 DISKUS) 1 Each Disk.w.dev, 1 INH IH BID, INHALER 08/10/16 Ascorbic Acid (VITAMIN C) 1,000 Mg Tablet, 1000 MG PO DAILY 08/10/16 [place]-3/Dha/Epa/Fish Oil (Fish Oil [place]-3 EC 1,200 mg) 1 Each Capsule.dr, 1 EACH PO BID 08/10/16 Calcium Carbonate/Vitamin D3 (CALCIUM 600 + VIT D 200 TABLET) 1 Each Tablet, 1 EACH PO BID 08/10/16 Aspirin (ASPIRIN) 81 Mg Tab.chew, 81 MG PO DAILY, TAB.CHEW 08/10/16 Cholecalciferol (Vitamin D3) (D3-2000) 2,000 Unit Capsule, 2000 UNIT PO DAILY 08/10/16 Valsartan (DIOVAN) 160 Mg Tablet, 160 MG PO BID, TAB 08/10/16 Discontinued Reported Medications Cyclobenzaprine Hcl (CYCLOBENZAPRINE HCL) 10 Mg Tablet, 10 MG PO BID, TAB 08/10/16 Discontinued Scripts Aa 3%/Electrolyte-Tpn Soln/Gly (PROCALAMINE IV SOLUTION) 1,000 Ml Iv.soln, 1000 ML IV DAILY for poor PO for 3 Days, MISC Prov:MARY MARTINI MD 11/16/19 Phenazopyridine Hcl (PHENAZOPYRIDINE HCL) 200 Mg Tablet, 200 MG PO PRN TID PRN for URINARY PAIN for 10 Days, #30 TAB Prov:MARY MARTINI MD 11/16/19 Temazepam (RESTORIL) 7.5 Mg Capsule, 7.5 MG PO PRN QHS PRN for INSOMNIA, #30 CAP Prov:MARY MARTINI MD 11/16/19 Hydrocodone Bit/Acetaminophen (HYDROCODONE-APAP 5-325 ) 1 Tab Tablet, 1 TAB PO PRN Q4HRS PRN for MODERATE PAIN 4-6, #30 TAB Prov:MARY MARTINI MD 11/16/19 LUCIO PLUNKETT MD Dec 11, 2019 13:51
--- NOTE | 2019-12-11 14:35 | NUR ---
SS following up with discharge planning. Discharge orders received for return to [facility] ,[phone]; fax [phone]. Discharge orders phoned and faxed to [facility]. Pt will discharge today and return to [facility] between 1500 and 1530 via [employer], . Pt, pt's family, and pt's RN notified.
--- NOTE | 2019-12-11 14:43 | NUR ---
Report given to Lesley JAIMES at [facility]. PIV and heart monitor removed. Patient is in her own wheelchair.
--- NOTE | 2019-12-11 15:17 | NUR ---
Transportation here, escorted patient in patient's wheelchair to front entrance to [facility].
== END 2019-12-11 15:15 | DRG 698 ==
LOC: ER 13:06 → ED HOLD 18:24 → 2 NORTH 12-08 13:39
PROVIDERS: ADMIT Internal Medicine; ATTEND Internal Medicine
DX: T83.511A Infection and inflammatory reaction due to indwelling urethral catheter, initial encounter (principal); I50.33 Acute on chronic diastolic (congestive) heart failure; J96.21 Acute and chronic respiratory failure with hypoxia; E43 Unspecified severe protein-calorie malnutrition; E87.1 Hypo-osmolality and hyponatremia; J98.11 Atelectasis; D64.9 Anemia, unspecified; E83.42 Hypomagnesemia; E87.6 Hypokalemia; K21.9 Gastro-esophageal reflux disease without esophagitis; K57.90 Diverticulosis of intestine, part unspecified, without perforation or abscess without bleeding; I11.0 Hypertensive heart disease with heart failure; I25.10 Atherosclerotic heart disease of native coronary artery without angina pectoris; J44.9 Chronic obstructive pulmonary disease, unspecified; M81.0 Age-related osteoporosis without current pathological fracture; Y84.6 Urinary catheterization as the cause of abnormal reaction of the patient, or of later complication, without mention of misadventure at the time of the procedure; Z82.49 Family history of ischemic heart disease and other diseases of the circulatory system; Z87.891 Personal history of nicotine dependence; Z90.710 Acquired absence of both cervix and uterus; Z99.81 Dependence on supplemental oxygen; Z88.8 Allergy status to other drugs, medicaments and biological substances
CPT/HCPCS: 36415; 71045; 74177; 80048; 80053; 81001; 82550; 83540; 83550; 83605; 83690; 83735; 83880; 85025; 85610; 87086; 87804; 93005; 96374; 96375; J0696; J1940; J2212; J3475; Q0167; Q9966; Q9967; 97110; 99285-25; G0378